=== PATIENT | male | born 1970 | race Caucasian/White ===

== ENCOUNTER 2018-05-22 11:23 | Inpatient (IN) | payer OTHER, MEDICARE ==
[~2018-05-22] VITALS: Ht 170.2 cm; Wt 70.1 kg
[2018-05-22] VITALS (9 sets, daily range): BP systolic 120–145; BP diastolic 78–98
--- NOTE | 2018-05-22 11:54 | ED GENERAL ADULT ---
History of Present Illness General Chief Complaint: ETOH/Drug Related Complaint Stated Complaint: SENT FOR HIGHWATCH CLEARENCE Source: patient Exam Limitations: no limitations Vital Signs & Intake/Output Vital Signs & Intake/Output Vital Signs Date Time Temp Pulse Resp B/P B/P Pulse O2 O2 Flow FiO2 Mean Ox Delivery Rate 05/23 0436 50 18 132/90 97 Room Air 05/23 0407 98.5 77 130/84 95 05/22 2359 98.3 64 20 142/98 97 Room Air 05/22 2205 98.3 80 19 120/84 95 05/22 1948 Room Air 05/22 1937 98.6 89 16 140/78 97 05/22 1850 98.6 90 20 144/90 05/22 1759 98.6 90 20 144/99 96 Room Air 05/22 1700 98.6 89 20 140/90 05/22 1502 98.1 96 17 145/96 05/22 1502 98.2 96 18 145/96 97 05/22 1401 98.1 88 18 144/89 97 05/22 1400 98.1 88 18 144/89 05/22 1243 97.1 96 16 139/88 05/22 1242 97.0 96 16 139/88 97 Room Air ED Intake and Output 05/23 0000 05/22 1200 Intake Total 120 Output Total 450 Balance -330 Intake, Oral 120 Output, Urine 450 Patient 152 lb 150 lb Weight Weight Bed scale Reported by Patient Measurement Method Allergies Coded Allergies: No Known Allergies (05/22/18) Reconcile Medications No Known Home Medications Triage Note: PT SENT IN FOR HIGHWATCH CLEARENCE.. PT LAST DRINK YESTERDAY. PT DRINKS 2 LITERS A DAY VODKA FOR LONG HE CAN REMEMBER. PT HAS HX OF SEIZURES ETOH RELATED.. PT HAS HX OF DEPRESSION. PT STATES THAT HE IS REALLY TIRED AND WANTS TO SLEEP. Triage Nurses Notes Reviewed? yes Onset: Gradual Duration: day(s):, constant, continues in ED, getting worse HPI: Patient presents for evaluation of acute alcohol withdrawal. Patient states he drinks about 2 L of alcohol daily. He has been drinking for many years. He went through detox about 2 years ago but has begun drinking again. His last alcoholic beverage was yesterday. Patient complains of tremors and nausea. He also refers past history of alcohol total seizures. Past History Travel History Traveled to [place] past 21 day No Medical History Any Pertinent Medical History? see below for history Neurological: seizure Psychiatric: bipolar disease, depression Surgical History Surgical History: non-contributory Psychosocial History What is your primary language Pashto Tobacco Use: Current Daily Use Daily Tobacco Use Amount/Type: => 5 Cigarettes daily ETOH Use: heavy use Family History Hx Contributory? No Review of Systems Review of Systems Constitutional: Reports: no symptoms. EENTM: Reports: no symptoms. Respiratory: Reports: no symptoms. Cardiovascular: Reports: no symptoms. GI: Reports: see HPI. Genitourinary: Reports: no symptoms. Musculoskeletal: Reports: no symptoms. Skin: Reports: no symptoms. Neurological/Psychological: Reports: tremors. Hematologic/Endocrine: Reports: no symptoms. Immunologic/Allergic: Reports: no symptoms. All Other Systems: Reviewed and Negative Physical Exam Physical Exam General Appearance: SEE BELOW Comments: General: Alert, calm, cooperative Head: Normocephalic, atraumatic Eyes: Normal inspection, no nystagmus, EOMI Ears: Normal inspection Nose: Normal inspection Throat: Moist mucosa Neck: Supple, no goiter Heart: Regular rate and rhythm, no murmurs rubs or gallops Lungs: Clear to auscultation bilaterally with good air entry Abdomen: Soft nontender nondistended, normal bowel sounds Chest: Nontender Extremities: Normal range of motion grossly, mild tremors present, no cyanosis clubbing or edema of the upper extremities Neurologic: cranial nerves II through XII grossly intact, speech clear, gait normal Psychiatric: No apparent delusions or hallucinations, no pressured speech or thought blocking Core Measures ACS in differential dx? No CVA/TIA Diagnosis: No Sepsis Present: No Sepsis Focused Exam Completed? No Progress Differential Diagnoses I considered the following diagnoses in my evaluation of the patient: Alcohol withdrawal, electrolyte abnormality, anemia, dehydration, alcoholic ketoacidosis Plan of Care: Orders Procedure Date/time Status Heart Healthy Diet 05/23 B Active ECHOCARDIOGRAM 05/23 855 Active Change service to 05/23 735 Active TROPONIN LEVEL 05/23 600 Complete PARTIAL THROMBOPLASTIN TIME 05/23 600 Complete PROTHROMBIN TIME 05/23 600 Complete MAGNESIUM 05/23 600 Complete HEPATIC FUNCTION PANEL 05/23 600 Complete CBC WITHOUT DIFFERENTIAL 05/23 600 Complete BASIC ELECTROLYTES PLUS BUN&CR 05/23 600 Complete EKG 05/23 600 Active Heart Healthy Diet 05/22 D Complete Weight 05/22 1943 Active Vital Signs 05/22 194 Active Teach/Educate 05/22 194 Active Pain Treatment and Response 05/22 1943 Active Nutritional Intake, Monitor 05/22 1943 Active Isolation 05/22 1943 Active Intake & Output 05/22 194 Active Patient Care Conference 05/22 1943 Active Activity/Ambulation 05/22 194 Active Vital Signs 05/22 193 Active HEPATITIS PANEL 05/22 1810 Complete TROPONIN LEVEL 05/22 1800 Complete EKG 05/22 1800 Active Pathway - chart 05/22 1759 Active House Staff 05/22 1759 Active Patient Data 05/22 1759 Active Code Status 05/22 1759 Active Admit to inpatient 05/22 1651 Active Misc Message 05/22 1642 Active ED Holding Orders 05/22 1642 Active Admit to inpatient 05/22 1642 Active Code Status 05/22 1642 Complete Patient Data 05/22 1600 Active MAGNESIUM 05/22 1549 Complete BASIC METABOLIC PANEL 05/22 1549 Complete Intake & Output 05/22 1203 Active MAGNESIUM 05/22 1155 Complete Lab Add-on Test 05/22 UNK Active VTE Mechanical Prophylaxis 05/22 UNK Active Telemetry/Sleeve Ironer 05/22 UNK Active CIWA 05/22 UNK Complete SOCIAL WORK CONSULT 05/22 UNK Active Current Medications Sig/Kian Start time Last Medication Dose Stop Time Status Admin Lorazepam 2 MG Q8 05/23 1400 AC (Ativan) Magnesium Chloride 64 MG ONCE ONE 05/23 1130 CAN (Slow-Mag) 05/23 1131 Magnesium Chloride 64 MG BID 05/23 1054 AC (Slow-Mag) Folic Acid 1 MG DAILY 05/23 09 AC 05/23 (Folic Acid) 08 Nicotine 21 MG DAILY 05/23 09 AC (Nicoderm) Thiamine HCl 100 MG DAILY 05/23 0900 AC 05/23 (Vitamin B1) 0813 Heparin Sodium 5,000 UNIT Q8 05/22 2200 AC 05/23 (Porcine) 0607 Dicyclomine HCl 20 MG Q6P PRN 05/22 194 AC (Bentyl) Ondansetron HCl 4 MG Q6P PRN 05/22 1945 AC (Zofran) Acetaminophen 650 MG Q6P PRN 05/22 1800 AC (Tylenol) Oxycodone HCl 10 MG Q6P PRN 05/22 1800 AC (Roxicodone) Oxycodone/ 1 TAB Q6P PRN 05/22 1800 AC Acetaminophen (Percocet) Lorazepam 2 MG Q2P PRN 05/22 1200 AC (Ativan) Lorazepam 1 MG Q2P PRN 05/22 1200 AC (Ativan) Laboratory Tests 05/23/18 0653: Anion Gap 13, Estimated GFR > 60, BUN/Creatinine Ratio 16.3, Magnesium 1.4 L, Total Bilirubin 2.0 H, Direct Bilirubin 0.4, AST 55, ALT 56, Alkaline Phosphatase 57, Troponin I < 0.01, Total Protein 6.7, Albumin 3.8, PT 10.9, INR 1.00, APTT 32, CBC w Diff NO MAN DIFF REQ, RBC 4.10 L, MCV 97.1 H, MCH 32.5 H , MCHC 33.5, RDW 13.7, MPV 9.6, Gran % 49.6, Lymphocytes % 39.7, Monocytes % 9.2 , Eosinophils % 0.9, Basophils % 0.6, Absolute Granulocytes 1.4, Absolute Lymphocytes 1.1 L, Absolute Monocytes 0.3, Absolute Eosinophils 0, Absolute Basophils 0 05/23/18 0600: Troponin I Cancelled 05/22/18 1810: Troponin I < 0.01, Hepatitis A IgM Ab NONREACTIVE, Hep Bs Antigen NONREACTIVE, Hep B Core IgM Ab Conf NONREACTIVE, Hepatitis C Antibody NONREACTIVE 05/22/18 1655: Anion Gap 14, Estimated GFR > 60, BUN/Creatinine Ratio 18.8, Glucose 88, Calcium 8.8, Magnesium 1.3 L 05/22/18 1640: Urine Opiates Screen < 100, Methadone Screen < 40, Barbiturate Screen < 60, Ur Phencyclidine Scrn < 6.00, Amphetamines Screen < 100, U Benzodiazepines Scrn < 85, Urine Cocaine Screen < 50, Urine Cannabis Screen < 5.00 Initial ED EKG: sinus tachycardia Departure Departure Disposition: STILL A PATIENT Condition: Stable Clinical Impression Primary Impression: Alcohol withdrawal Qualifiers: Complication of substance-induced condition: uncomplicated Qualified Code: F10.230 - Alcohol dependence with withdrawal, uncomplicated Departure Forms: Customer Survey General Discharge Information Prescriptions: Current Visit Scripts No Known Home Medications Admission Note Spoke With: Darlene Rai MD Documentation of Exam: Documentation of any treatments & extenuating circumstances including Concerns Regarding Discharge (functional status, medication knowledge or non-compliance, living conditions, etc.) that warrant an admission rather than observation: Continued alcohol consumption places the patient at high risk of pancreatitis, pancreatic failure, liver failure and cirrhosis. In order to avoid this the patient will need to cease drinking alcohol. Patient's alcohol use places pt at high risk of seizures and delirium tremens during cessation. Patient will be at high risk of withdrawal seizures and delirium tremens (both of which can be fatal) for up to 5 days after stopping alcohol. pt will require IV Ativan to prevent these complications. pt is therefore a very poor candidate for outpatient treatment given the above concerns and treatment needs. It addition the patient is also experiencing a severe hypomagnesemia placing him at risk of neuromuscular hyperexcitability and cardiovascular complications including EKG changes. He now requires magnesium supplementation and recheck of his serum magnesium levels for improvement. Pt will require a multiple day hospitalization. Critical Care Note Critical Care Note Critical Care Time: 30-74 min
[2018-05-22 12:08] LABS: ABSOLUTE BASOPHIL COUNT 0 /CUMM (0.0-0.2); ABSOLUTE EOSINOPHIL COUNT 0 /CUMM (0.0-0.7); ABSOLUTE GRANULOCYTE CT 3.9 /CUMM (1.4-6.5); ABSOLUTE LYMPH COUNT 0.3 /CUMM (1.2-3.4); ABSOLUTE MONOCYTE COUNT 0.3 /CUMM (0.10-0.60); BASOPHIL % 0.3 % (0.0-2.0); EOSINOPHIL % 0 % (0-5); MEAN CORPUSCULAR HGB 33.5 PG (27.0-31.0); MEAN CORPUSCULAR HGB CONC 34.7 G/DL (33.0-37.0); MEAN CORPUSCULAR VOLUME 96.5 FL (80.0-94.0); MEAN PLATELET VOLUME 8.8 FL (7.4-10.4); PLATELET COUNT 140 /CUMM (130-400); RBC DISTRIBUTION WIDTH 14.1 % (11.5-14.5); RED BLOOD CELL CT 4.67 /CUMM (4.70-6.10); WHITE BLOOD CELL COUNT 4.5 /CUMM (4.8-10.8)
[2018-05-22 12:41] LABS: GRANULOCYTE % 86.5 % (42.2-75.2)
--- NOTE | 2018-05-22 16:08 | History & Physical ---
General Information and HPI Allergies/Medications Allergies: Coded Allergies: No Known Allergies (05/22/18) Home Med list No Known Home Medications Past History Travel History Traveled to [place] past 21 day No Medical History Neurological: seizure Psychiatric: bipolar disease, depression Past Family/Social History Psychosocial History ETOH Use: heavy use Core Measures/Misc (07/09) Cerebrovascular Accident CVA/TIA Diagnosis: No Sepsis (View protocol) If YES complete Sepsis Event Note If YES complete Sepsis Event Note
--- NOTE | 2018-05-22 16:55 | History & Physical ---
Christopher Torrez 05/22/18 9734: General Information and HPI MD Statement: I have seen and personally examined JOI JI and documented this H&P. The patient is a 48 year old M who presented with a patient stated chief complaint of EtOH withdrawal. Source of Information: patient Exam Limitations: no limitations History of Present Illness: Mr. Ji is a 48 year old male with a history of EtOH abuse, depression, GERD and KATHI who presented to the ED for alcohol detox. He states that his last drink was yesterday, and that for years he has been drinking two liters of vodka daily. Last night around 10pm he began experiencing severe nausea, abdominal pain and vomiting, stating that he had vomited "dozens" of times throughout the night, without blood in his vomit. He additionally complains of a headache and tremors that were similar in onset, as well as occasionally "seeing spots". He denies auitory and tactile disturbances, or seizure activity. The patient additionally complains of chest pain that he attributes to GERD that he says has been happening daily for over a week, and insomnia that has been bothering him since he was a teenager. The patient resides in [place], [place], but came to [place] on the advice of his mother. He has previously withdrawn from alcohol 4-5 times, and has been admitted to [facility] for similar complaints as recently as 6 months ago. The patient has never been intubated, but has had seizures related to alcohol withdrawal at least 3 times, most recently about two years ago. The patient was most recently sober for an extended amount of time in 2000, when he spent 6 months in [facility] in [place] before relapsing after getting . He is a current every day smoker, reporting 1/2 pack per day, but he denies illicit drug use. Allergies/Medications Allergies: Coded Allergies: No Known Allergies (05/22/18) Home Med list No Known Home Medications Compliance With Home Meds: UNKNOWN Past History Travel History Traveled to [place] past 21 day No Medical History Neurological: seizure Cardiovascular: Denies Psychiatric: bipolar disease, depression Surgical History Surgical History: none Past Family/Social History Psychosocial History Where do you live? Home Who Do You Live With? self Primary Language: Kenyan Smoking Status: Current Everyday Smoker ETOH Use: heavy use Illicit Drug Use: denies illicit drug use Sexual History Sexually Active Yes Review of Systems Review of Systems Constitutional: Reports: diaphoresis, malaise. Denies: chills, fever, weakness. EENTM: Reports: visual changes. Cardiovascular: Reports: chest pain, palpitations. Respiratory: Denies: cough, hemoptysis, short of breath, sputum production. GI: Reports: abdominal pain, nausea, vomiting. Denies: diarrhea, bloody stool. Neurological/Psychological: Reports: anxiety, headache, tremors. Exam & Diagnostic Data Last 24 Hrs of Vital Signs/I&O Vital Signs Date Time Temp Pulse Resp B/P B/P Pulse O2 O2 Flow FiO2 Mean Ox Delivery Rate 05/22 1759 98.6 90 20 144/99 96 Room Air 05/22 1502 98.1 96 17 145/96 05/22 1502 98.2 96 18 145/96 97 05/22 1401 98.1 88 18 144/89 97 05/22 1400 98.1 88 18 144/89 05/22 1243 97.1 96 16 139/88 05/22 1242 97.0 96 16 139/88 97 Room Air 05/22 1158 97.7 98 22 158/98 98 Room Air 05/22 1137 96.5 95 22 139/95 05/22 1136 96.5 95 22 139/95 95 Intake & Output 05/22 1600 05/22 0800 05/22 0000 Intake Total 0 Output Total Balance 0 Intake, Oral 0 Patient 68.039 kg Weight Weight Reported by Patient Measurement Method Physical Exam General Appearance Alert, Oriented X3, Cooperative, Mild Distress, Appears older than stated age HEENT Atraumatic, PERRLA, EOMI Neck Supple, No JVD Cardiovascular Regular Rate, Normal S1, Normal S2, No Murmurs Lungs Clear to Auscultation, Normal Air Movement Abdomen Normal Bowel Sounds, Soft, Tender to deep palpation Neurological Normal Speech, Strength at 5/5 X4 Ext, Sensation Intact, Mild resting tremor Extremities No Clubbing, No Cyanosis, No Edema Last 24 Hrs of Labs/Robin: Laboratory Tests 05/22/18 1810: Troponin I < 0.01, Hepatitis A IgM Ab Pending, Hep Bs Antigen Pending, Hep B Core IgM Ab Conf Pending, Hepatitis C Antibody Pending 05/22/18 1655: Anion Gap 14, Estimated GFR > 60, BUN/Creatinine Ratio 18.8, Glucose 88, Calcium 8.8, Magnesium 1.3 L 05/22/18 1640: Urine Opiates Screen < 100, Methadone Screen < 40, Barbiturate Screen < 60, Ur Phencyclidine Scrn < 6.00, Amphetamines Screen < 100, U Benzodiazepines Scrn < 85, Urine Cocaine Screen < 50, Urine Cannabis Screen < 5.00 05/22/18 1155: Anion Gap 29 H, Estimated GFR > 60, BUN/Creatinine Ratio 15.6, Glucose 124 H, Calcium 9.9, Magnesium 0.6 *L, Total Bilirubin 2.5 H, AST 70 H, ALT 75 H, Alkaline Phosphatase 65, Troponin I < 0.01, Total Protein 8.9 H, Albumin 5.4 H , Globulin 3.5, Albumin/Globulin Ratio 1.5, CBC w Diff NO MAN DIFF REQ, RBC 4.67 L, MCV 96.5 H, MCH 33.5 H, MCHC 34.7, RDW 14.1, MPV 8.8, Gran % 86.5 H, Lymphocytes % 5.7 L, Monocytes % 7.5, Eosinophils % 0, Basophils % 0.3, Absolute Granulocytes 3.9, Absolute Lymphocytes 0.3 L, Absolute Monocytes 0.3, Absolute Eosinophils 0, Absolute Basophils 0, Serum Alcohol < 10.0 Assessment/Plan Assessment: 48 year old male with history of heavy alcohol use and depression, presenting for signs and symptoms of severe alcohol withdrawal, as well as chest pain and EKG changes. Patient's initial CIWA on presentation was 16, AST was 70 and ALT 75. Magnesium of 0.6. Initial EKG showed T wave inversions in II, III and avF, as well as V3, V4 and V5. Problems: 1. EtOH withdrawal 2. Chest pain with acute EKG changes 3. Elevated liver enzymes 4. Hypomagnesemia Plan: * Admit to telemetry * Lorazepam per CIWA protocol * Thiamine and Folic acid PO daily * Follow-up hepatitis panel * Abdominal ultrasound * Echocardiogram * Serial troponins and EKG's Full code Heparin Sub-q PPX Heart healthy diet CBC, BEP, PT/INR & repeat hepatic panel for tomorrow As Ranked By This Provider Problem List: 1. Alcohol withdrawal Qualifiers Complication of substance-induced condition: uncomplicated Qualified Code: F10.230 - Alcohol dependence with withdrawal, uncomplicated 2. Depression 3. KATHI (obstructive sleep apnea) Core Measures/Misc (07/09) Acute Coronary Syndrome ACS Diagnosis: No Congestive Heart Failure Congestive Heart Failure Diagnosis No Cerebrovascular Accident CVA/TIA Diagnosis: No VTE (View Protocol) VTE Risk Factors Age>40 No Mechanical VTE Prophylaxis d/t N/A MechProphylax Ordered No VTE Pharm Prophylaxis d/t NA PharmProphylax ordered Sepsis (View protocol) Sepsis Present: No If YES complete Sepsis Event Note If YES complete Sepsis Event Note Marisa Blue MD 05/22/18 1700: Core Measures/Misc (07/09) Sepsis (View protocol) If YES complete Sepsis Event Note If YES complete Sepsis Event Note Resident Review Statement Resident Statement: agreed with buyer intern Other Findings: 48-year-old gentleman with past medical history of bipolar and depression, alcoholic withdrawal seizures came to [facility] requesting EtOH detoxification. Patient lives in [facility] he brought himself to [facility] and was told by his mom that EtOH treatment was best at [facility]. Patient also mentioned that he would like to go to [facility] for inpatient detox. Apparently patient was not usual state of health until last night, at around 10 PM patient developed nausea, vomiting, chest discomfort and abdominal pain following vomiting. Patient had multiple episodes of vomiting with no blood. He also felt weak, heartburn decreased sleep and decreased appetite. He also reports seeing black spots on and off. He denied chest pain, palpitations, weakness, fall, loss of consciousness, headache, dysuria, constipation, diarrhea,. He was not eating much for the past few weeks. Patient takes vodka 2 L every day and he quit 2 days ago. Along with vodka he was smoking half a pack of cigarettes a day. Patient has been drinking since age of 13 years which got worsened after his divorce in 2000. He was briefly sober for 6 months in 2000. He claims he had 3 episodes of alcohol withdrawal seizures and last one was 2 years ago. He was never been intubated in the past. He was admitted for EtOH detox at [facility] 6 months ago. Patient lives alone and has never seen any physician in 3 years. Past surgical history-none Allergies-none Social history-everyday smoker and alcoholic. Denies illicit drug use. Family history-was adopted and lives alone. His mom lives in [place]. Admission vitals Temperature 98.1, pulse rate 96, respiratory rate 17, blood pressure 143/96, saturating 97 on room air Admission labs WBC 4.5, hemoglobin 15.6, platelet count 140, sodium 139 potassium 3.8, carbon dioxide 17, anion gap 29, BUN 14, creatinine 0.9, calcium 9.9, magnesium 0.6, total bilirubin 2.5, AST 70, ALT 75, troponin 0 0.01 urine toxicology-serum alcohol less than 10 ED treatment Lorazepam 2 mg IV once, lorazepam 2 mg IV once, pantoprazole 40 mg IV once, banana bag once, magnesium sulfate 1 g IV once EKG- On examination-patient conscious, oriented 3. No obvious external injuries. No skin lesions. Cardiovascular [id number] no murmur Respiratory system-normal vesicular breath sounds Abdomen-soft, bowel sounds heard. FACILITY OPERATIONS MANAGER-mild tremulousness noted No cerebellar signs Cranial nerves III to XII-intact Assessment and plan 1. Alcohol withdrawal * Admitted to telemetry for EKG changes. CIWA protocol * Reg protocol * Ativan 2 mg every 6 daily and taper according to CIWA * Ativan 1 mg IV as needed according to CIWA * Dicyclomine for abdominal cramps * Zofran IV every 6 as needed for nausea * Banana bag * Thiamine and folic acid from tomorrow * Encourage p.o. intake * Patient had elevated liver functions, can be secondary due to alcoholic steatohepatitis. We will do repeat liver function study tomorrow along with coagulation study. We will order hepatitis panel. * Patient had low magnesium of 0.6 upon admission we will give IV magnesium and repeat the levels and follow. * Patient had anionic gap metabolic acidosis initially and the gap closed. 2. New EKG changeS- * patient EKG shows T-wave inversion in lead II III, aVF and V3 V4 V5 V6. We do not have previous EKG to compare. Patient did not have chest pain but complained of chest discomfort. His initial set of troponin negative. * We will place a cardiology consult and if needed echocardiogram as per cardiology. Diet-heart healthy diet DVT prophylaxis-subcu heparin Cecelia PEÑA,Darlene 05/22/18 1746: Core Measures/Misc (07/09) Sepsis (View protocol) If YES complete Sepsis Event Note If YES complete Sepsis Event Note Attending MD Review Statement Attending Statement Attending MD Statement: examined this patient, discuss w/resident/PA/BAD CLOTH CHECKER, agreed w/resident/PA/BAD CLOTH CHECKER, reviewed EMR data (avail), discussed with nursing, reviewed images Attending Assessment/Plan: 48-year-old male past medical history of alcohol abuse, alcohol withdrawal related seizures, active tobacco use and depression is here for acute alcohol detox. In the emergency room he complained of some nonspecific chest pain and was noted to have some EKG changes with T-wave inversions prompting the admission to telemetry. He has a significant anion gap acidosis with elevated liver enzymes and severe hypomagnesemia. At this point will bring him into telemetry, repeat his labs stat he's gotten IV hydration and IV mag in the ER. We'll trend his troponins and EKG. We'll put him on Ativan per CIWA and Ativan [id number] with thiamine folate and multivitamins. Get a social work consult for alcohol rehabilitation and follow closely.
--- NOTE | 2018-05-22 17:48 | Admission Certification ---
Admission Certification Certification Statement - As attending physician, I certify that at the time of - admission, based on clinical presentation, severity of - symptoms, need for further diagnostic testing and - therapeutic interventions, and risk of adverse outcomes - without in-hospital treatment, in my clinical assessment, - this patient requires an acute hospital stay for a minimum - of two nights or longer. I have also considered psychsocial - factors such as support system, advanced age, financial - issues, cognitive issues, and failed out-patient treatments, - past re-admission history, safety of patient, and lack of - compliance as applicable. Specific rationale supporting this admission is: Acute etoh withdrawal with hypomagnesemia.
[2018-05-23] VITALS (7 sets, daily range): BP systolic 122–140; BP diastolic 76–90
--- NOTE | 2018-05-23 07:07 | PN- Housestaff ---
Christopher Torrez 05/23/18 0707: Subjective Follow-up For: EtOH withdrawal Acute EKG changes Tele-Events Since Last Visit: Normal sinus rhythem overnight Subjective: Patient seen sitting comfortably at the bedside. He reports improved nausea and vomiting, improving headache and tremor as well. Denies audio/visual/tactile disturbances. Reports moderate agitation/anxiety. Denying chest pain, shortness of breath, palpitations. During rounds, patient was much more drowsy, likely secondary to ativan. Review of Systems Constitutional: Denies: chills, diaphoresis, fever. Objective Last 24 Hrs of Vital Signs/I&O Vital Signs Date Time Temp Pulse Resp B/P B/P Pulse O2 O2 Flow FiO2 Mean Ox Delivery Rate 05/23 0436 50 18 132/90 97 Room Air 05/23 0407 98.5 77 130/84 95 05/22 2359 98.3 64 20 142/98 97 Room Air 05/22 2205 98.3 80 19 120/84 95 05/22 1948 Room Air 05/22 1937 98.6 89 16 140/78 97 05/22 1850 98.6 90 20 144/90 05/22 1759 98.6 90 20 144/99 96 Room Air 05/22 1700 98.6 89 20 140/90 05/22 1502 98.1 96 17 145/96 05/22 1502 98.2 96 18 145/96 97 05/22 1401 98.1 88 18 144/89 97 05/22 1400 98.1 88 18 144/89 05/22 1243 97.1 96 16 139/88 05/22 1242 97.0 96 16 139/88 97 Room Air 05/22 1158 97.7 98 22 158/98 98 Room Air 05/22 1137 96.5 95 22 139/95 05/22 1136 96.5 95 22 139/95 95 Intake & Output 05/23 0800 08 0000 05/22 1600 Intake Total 120 0 Output Total 450 Balance -330 0 Intake, Oral 120 0 Output, Urine 450 Patient 69.003 kg 68.039 kg Weight Weight Bed scale Reported by Patient Measurement Method Physical Exam General Appearance: Alert, Oriented X3, Cooperative, No Acute Distress HEENT: Atraumatic, PERRLA Cardiovascular: Regular Rate, Normal S1, Normal S2, No Murmurs Lungs: Clear to Auscultation Abdomen: Normal Bowel Sounds, Soft, No Tenderness Current Medications: Current Medications Sig/Kian Start time Last Medication Dose Route Stop Time Status Admin Acetaminophen 650 MG Q6P PRN 05/22 1800 AC PO Cyanocobalamin/ 1 BAG ONCE ONE 05/22 1215 DC 05/22 Thiamine/Pyridoxine IV 05/22 2014 1400 Sodium Chloride 1,000 ML Dicyclomine HCl 20 MG Q6P PRN 05/22 1945 AC PO Folic Acid 1 MG DAILY 05/23 09 AC PO Heparin Sodium 5,000 UNIT Q8 05/22 2200 AC 05/23 (Porcine) SC 0607 Lorazepam 0 .STK-MED ONE 05/22 1834 DC PO Lorazepam 2 MG Q6 05/22 1803 AC 05/23 PO 0606 Lorazepam 2 MG ONE ONE 05/22 1200 DC 05/22 IV 05/22 1201 1207 Lorazepam 2 MG ONCE ONE 05/22 1200 DC 05/22 PO 05/22 1201 1207 Lorazepam 2 MG Q2P PRN 05/22 1200 AC IV Lorazepam 1 MG Q2P PRN 05/22 1200 AC IV Lorazepam 0 .STK-MED ONE 05/22 1155 DC PO Lorazepam 0 .STK-MED ONE 05/22 1155 DC .ROUTE Magnesium Sulfate 1 GM ONCE ONE 05/22 2015 DC 05/22 Dextrose/Water 100 ML IV 05/23 0014 2143 Magnesium Sulfate 1 GM ONCE ONE 05/22 1300 DC 05/22 Dextrose/Water 100 ML IV 05/22 1659 1259 Ondansetron HCl 4 MG Q6P PRN 05/22 1945 AC IV Ondansetron HCl 0 .STK-MED ONE 05/22 1223 DC .ROUTE Ondansetron HCl 4 MG ONCE ONE 05/22 1215 DC 05/22 IV 05/22 1216 1227 Oxycodone HCl 10 MG Q6P PRN 05/22 1800 AC PO Oxycodone/ 1 TAB Q6P PRN 05/22 1800 AC Acetaminophen PO Pantoprazole Sodium 0 .STK-MED ONE 05/22 1155 DC IV Pantoprazole Sodium 40 MG ONCE ONE 05/22 1145 DC 05/22 IV 05/22 1146 1207 Thiamine HCl 100 MG DAILY 05/23 0900 AC PO Last 24 Hrs of Lab/Robin Results Last 24 Hrs of Labs/Mics: Laboratory Tests 05/23/18 0653: Sodium Pending, Potassium Pending, Chloride Pending, Carbon Dioxide Pending, Anion Gap Pending, BUN Pending, Creatinine Pending, BUN/Creatinine Ratio Pending , Magnesium Pending, Total Bilirubin Pending, Direct Bilirubin Pending, AST Pending, ALT Pending, Alkaline Phosphatase Pending, Troponin I Pending, Total Protein Pending, Albumin Pending, PT Pending, INR Pending, APTT Pending, CBC w Diff Pending, WBC Pending, RBC Pending, Hgb Pending, Hct Pending, MCV Pending, MCH Pending, MCHC Pending, RDW Pending, Plt Count Pending, MPV Pending 05/23/18 0600: Troponin I Cancelled 05/22/18 1810: Troponin I < 0.01, Hepatitis A IgM Ab Pending, Hep Bs Antigen Pending, Hep B Core IgM Ab Conf Pending, Hepatitis C Antibody Pending 05/22/18 1655: Anion Gap 14, Estimated GFR > 60, BUN/Creatinine Ratio 18.8, Glucose 88, Calcium 8.8, Magnesium 1.3 L 05/22/18 1640: Urine Opiates Screen < 100, Methadone Screen < 40, Barbiturate Screen < 60, Ur Phencyclidine Scrn < 6.00, Amphetamines Screen < 100, U Benzodiazepines Scrn < 85, Urine Cocaine Screen < 50, Urine Cannabis Screen < 5.00 05/22/18 1155: Anion Gap 29 H, Estimated GFR > 60, BUN/Creatinine Ratio 15.6, Glucose 124 H, Calcium 9.9, Magnesium 0.6 *L, Total Bilirubin 2.5 H, AST 70 H, ALT 75 H, Alkaline Phosphatase 65, Troponin I < 0.01, Total Protein 8.9 H, Albumin 5.4 H , Globulin 3.5, Albumin/Globulin Ratio 1.5, CBC w Diff NO MAN DIFF REQ, RBC 4.67 L, MCV 96.5 H, MCH 33.5 H, MCHC 34.7, RDW 14.1, MPV 8.8, Gran % 86.5 H, Lymphocytes % 5.7 L, Monocytes % 7.5, Eosinophils % 0, Basophils % 0.3, Absolute Granulocytes 3.9, Absolute Lymphocytes 0.3 L, Absolute Monocytes 0.3, Absolute Eosinophils 0, Absolute Basophils 0, Serum Alcohol < 10.0 Assessment/Plan Assessment: 48 year old male with history of heavy alcohol use and depression, presenting for signs and symptoms of severe alcohol withdrawal, as well as chest pain and EKG changes. Patient's initial CIWA on presentation was 16, AST was 70 and ALT 75. Magnesium of 0.6. Initial EKG showed T wave inversions in II, III and avF, as well as V3, V4 and V5. This morning, magnesium was 1.4, potassium of 3.4. CIWA this morning was 3-4. Serial troponins negative. Problems: 1. EtOH withdrawal 2. Chest pain with acute EKG changes 3. Elevated liver enzymes 4. Hypomagnesemia Plan: * Lorazepam per CIWA protocol, to taper dosage * Thiamine and Folic acid PO daily * Follow-up hepatitis panel * Consider abdominal ultrasound * Echocardiogram * Replete potassium and magnesium as necessary * food and nutrition services supervisor consulted for rehab placement * B12 and folate levels * CBC & BEP for tomorrow, K+ and Mg++, as well as evaluating pancytopenia/ possible cirrhosis * Nicotine patch as patient is current 1/2 PPD smoker Full code Heparin Sub-q PPX Heart healthy diet CBC, BEP, PT/INR & repeat hepatic panel for tomorrow Problem List: 1. Depression 2. KATHI (obstructive sleep apnea) 3. Alcohol withdrawal Pain Ratin Pain Location: Headache Pain Goal: Pain 4 or less Pain Plan: Per pathway Tomorrow's Labs & Rationales: BEP & Mg Soco PEÑA,Litzy 05/23/18 1045: Attending MD Review Statement Attending Statement Attending MD Statement: examined this patient, discuss w/resident/PA/GERIATRIC SOCIAL WORK PROFESSOR, agreed w/resident/PA/GERIATRIC SOCIAL WORK PROFESSOR, reviewed EMR data (avail), discussed with nursing, discussed with case mgmt, amended to note Attending Assessment/Plan: Patient seen and examined. Lying in bed sleeping, easily aroused. No events overnight on telemetry monitoring. She has not required additional doses of Ativan order in the scheduled doses. His CIWA Score Is Improving. No further complaints this morning. Recommend continuing CIWA protocol. Ativan is being decreased due to his significant somnolence this morning. He has ruled out for ACS with negative cardiac enzymes. Plan: -Follow-up with cardiology service regarding need for further cardiac workup given his abnormal EKG on presentation. Echocardiogram is pending. -Continue benzodiazepine taper. Social work consultation for alcohol abuse rehabilitation. -Thrombocytopenic today. No previous labs for comparison. Likely secondary to chronic alcohol abuse. Hold subcu heparin for now. Repeat CBCs in a.m. Supplement potassium and magnesium orally. -Check folic acid and B12 level for further evaluation of his macrocytosis.
[2018-05-23 08:17] LABS: PT 10.9 SEC (9.4-12.5); PTT 32 SEC (25-37)
[2018-05-23 08:36] LABS: ABSOLUTE BASOPHIL COUNT 0 /CUMM (0.0-0.2); ABSOLUTE EOSINOPHIL COUNT 0 /CUMM (0.0-0.7); ABSOLUTE GRANULOCYTE CT 1.4 /CUMM (1.4-6.5); ABSOLUTE LYMPH COUNT 1.1 /CUMM (1.2-3.4); ABSOLUTE MONOCYTE COUNT 0.3 /CUMM (0.10-0.60); BASOPHIL % 0.6 % (0.0-2.0); EOSINOPHIL % 0.9 % (0-5); GRANULOCYTE % 49.6 % (42.2-75.2); MEAN CORPUSCULAR HGB 32.5 PG (27.0-31.0); MEAN CORPUSCULAR HGB CONC 33.5 G/DL (33.0-37.0); MEAN CORPUSCULAR VOLUME 97.1 FL (80.0-94.0); MEAN PLATELET VOLUME 9.6 FL (7.4-10.4); PLATELET COUNT 94 /CUMM (130-400); RBC DISTRIBUTION WIDTH 13.7 % (11.5-14.5); WHITE BLOOD CELL COUNT 2.9 /CUMM (4.8-10.8)
[2018-05-23 08:41] LABS: HEMATOCRIT 39.8 % (42-52)
--- NOTE | 2018-05-23 10:04 | Cons- Cardiology ---
General Information and HPI Consulting Request Date of Consult: 05/23/18 Requested By: Soco PEÑA,Litzy Reason for Consult: Chest pain with abnormal ECG Source of Information: patient, old records Exam Limitations: no limitations History of Present Illness: Mr. Ji is a 48 year old male with a history of EtOH abuse, depression, GERD and KATHI who presented to the ED for alcohol detox. He states that his last drink was yesterday, and that for years he has been drinking two liters of vodka daily. Last night around 10pm he began experiencing severe nausea, abdominal pain and vomiting, stating that he had vomited "dozens" of times throughout the night, without blood in his vomit. He additionally complains of a headache and tremors that were similar in onset, as well as occasionally "seeing spots". He denies auitory and tactile disturbances, or seizure activity. The patient additionally complains of chest pain that he attributes to GERD that he says has been happening daily for over a week, and insomnia that has been bothering him since he was a teenager. By history, the patient's symptoms seem to be non cardiac in nature. He does have non specific STT changes on his ECG which may be related to LVH, metabolic abnormalities, etc, however, ischemia cannot be excluded without further evaluation Allergies/Medications Allergies: Coded Allergies: No Known Allergies (05/22/18) Home Med List: No Known Home Medications Current Medications: Current Medications Sig/Kian Start time Last Medication Dose Route Stop Time Status Admin Acetaminophen 650 MG Q6P PRN 05/22 1800 AC PO Cyanocobalamin/ 1 BAG ONCE ONE 05/22 1215 DC 05/22 Thiamine/Pyridoxine IV 05/22 2014 1400 Sodium Chloride 1,000 ML Dicyclomine HCl 20 MG Q6P PRN 05/22 1945 AC PO Folic Acid 1 MG DAILY 05/23 0900 AC 05/23 PO 0813 Heparin Sodium 5,000 UNIT Q8 05/22 2200 AC 05/23 (Porcine) SC 0607 Lorazepam 2 MG Q8 05/23 1400 AC PO Lorazepam 0 .STK-MED ONE 05/22 1834 DC PO Lorazepam 2 MG Q6 05/22 1803 DC 05/23 PO 0606 Lorazepam 2 MG ONE ONE 05/22 1200 DC 05/22 IV 05/22 1201 1207 Lorazepam 2 MG ONCE ONE 05/22 1200 DC 05/22 PO 05/22 1201 1207 Lorazepam 2 MG Q2P PRN 05/22 1200 AC IV Lorazepam 1 MG Q2P PRN 05/22 1200 AC IV Lorazepam 0 .STK-MED ONE 05/22 1155 DC PO Lorazepam 0 .STK-MED ONE 05/22 1155 DC .ROUTE Magnesium Sulfate 1 GM ONCE ONE 05/22 2015 DC 05/22 Dextrose/Water 100 ML IV 05/23 0014 2143 Magnesium Sulfate 1 GM ONCE ONE 05/22 1300 DC 05/22 Dextrose/Water 100 ML IV 05/22 1659 1259 Nicotine 21 MG DAILY 05/23 09 AC TOP Ondansetron HCl 4 MG Q6P PRN 05/22 1945 AC IV Ondansetron HCl 0 .STK-MED ONE 05/22 1223 DC .ROUTE Ondansetron HCl 4 MG ONCE ONE 05/22 1215 DC 05/22 IV 05/22 1216 1227 Oxycodone HCl 10 MG Q6P PRN 05/22 1800 AC PO Oxycodone/ 1 TAB Q6P PRN 05/22 1800 AC Acetaminophen PO Pantoprazole Sodium 0 .STK-MED ONE 05/22 1155 DC IV Pantoprazole Sodium 40 MG ONCE ONE 05/22 1145 DC 05/22 IV 05/22 1146 1207 Thiamine HCl 100 MG DAILY 05/23 09 AC 05/23 PO 0813 Past History Travel History Traveled to [place] past 21 day No Medical History Blood Transfusion Hx: No Neurological: seizure, vertigo EENT: NONE Cardiovascular: Denies Respiratory: NONE Gastrointestinal: NONE Hepatic: NONE Renal: NONE Musculoskeletal: NONE Psychiatric: bipolar disease, depression Endocrine: NONE Blood Disorders: NONE Cancer(s): NONE HOSPICE CONSULTANT/Reproductive: NONE Surgical History Surgical History: 1 Psychosocial History Where Do You Live? Home Who Do You Live With? self Services at Home: None Primary Language: Bulgarian Smoking Status: Current Everyday Smoker ETOH Use: heavy use Illicit Drug Use: denies illicit drug use Exam & Diagnostic Data Vital Signs and I&O Vital Signs Date Time Temp Pulse Resp B/P B/P Pulse O2 O2 Flow FiO2 Mean Ox Delivery Rate 05/23 0436 50 18 132/90 97 Room Air 05/23 040 98.5 77 130/84 95 05/22 2359 98.3 64 20 142/98 97 Room Air 05/22 2205 98.3 80 19 120/84 95 05/22 1948 Room Air 05/22 1937 98.6 89 16 140/78 97 05/22 1850 98.6 90 20 144/90 05/22 1759 98.6 90 20 144/99 96 Room Air 05/22 1700 98.6 89 20 140/90 05/22 1502 98.1 96 17 145/96 05/22 1502 98.2 96 18 145/96 97 05/22 1401 98.1 88 18 144/89 97 05/22 1400 98.1 88 18 144/89 05/22 1243 97.1 96 16 139/88 05/22 1242 97.0 96 16 139/88 97 Room Air 05/22 1158 97.7 98 22 158/98 98 Room Air 05/22 1137 96.5 95 22 139/95 05/22 1136 96.5 95 22 139/95 95 Intake & Output 05/23 0000 05/22 0800 05/22 0000 Intake Total 120 120 0 Output Total 450 Balance 120 -330 0 Intake, Oral 120 120 0 Output, Urine 450 Patient 152 lb 150 lb Weight Weight Bed scale Reported by Patient Measurement Method Physical Exam: General Alert, Oriented X3, Cooperative, Mild Distress, Appears older than stated age HEENT Atraumatic, PERRLA, EOMI Neck Supple, No JVD, carotids normal bilaterally Cardiovascular Regular Rate, Normal S1, Normal S2, 1/6 systolic murmur Lungs Clear to Auscultation, Normal Air Movement Abdomen Normal Bowel Sounds, Soft, Tender to deep palpation Neurological Normal / non focal Extremities No Clubbing, No Cyanosis, No Edema Labs/Robin Results: Laboratory Tests 05/23 05/23 05/22 0653 0600 1810 Chemistry Sodium (137 - 145 mmol/L) 131 L Potassium (3.5 - 5.1 mmol/L) 3.4 L Chloride (98 - 107 mmol/L) 94 L Carbon Dioxide (22 - 30 mmol/L) 25 Anion Gap (5 - 16) 13 BUN (9 - 20 mg/dL) 13 Creatinine (0.7 - 1.2 mg/dL) 0.8 Estimated GFR (>60 ml/min) > 60 BUN/Creatinine Ratio (7 - 25 %) 16.3 Magnesium (1.6 - 2.3 mg/dL) 1.4 L Total Bilirubin (0.2 - 1.3 mg/dL) 2.0 H Direct Bilirubin (< 0.4 mg/dL) 0.4 AST (17 - 59 U/L) 55 ALT (21 - 72 U/L) 56 Alkaline Phosphatase (< 127 U/L) 57 Troponin I (<0.11 ng/ml) < 0.01 Cancelled < 0.01 Total Protein (6.3 - 8.2 g/dL) 6.7 Albumin (3.5 - 5.0 g/dL) 3.8 Coagulation PT (9.4 - 12.5 SEC) 10.9 INR (0.90 - 1.17) 1.00 APTT (25 - 37 SEC) 32 Hematology CBC w Diff NO MAN DIFF REQ WBC (4.8 - 10.8 /CUMM) 2.9 L RBC (4.70 - 6.10 /CUMM) 4.10 L Hgb (14.0 - 18.0 G/DL) 13.3 L Hct (42 - 52 %) 39.8 L MCV (80.0 - 94.0 FL) 97.1 H MCH (27.0 - 31.0 PG) 32.5 H MCHC (33.0 - 37.0 G/DL) 33.5 RDW (11.5 - 14.5 %) 13.7 Plt Count (130 - 400 /CUMM) 94 L MPV (7.4 - 10.4 FL) 9.6 Gran % (42.2 - 75.2 %) 49.6 Lymphocytes % (20.5 - 51.1 %) 39.7 Monocytes % (1.7 - 9.3 %) 9.2 Eosinophils % (0 - 5 %) 0.9 Basophils % (0.0 - 2.0 %) 0.6 Absolute Granulocytes (1.4 - 6.5 /CUMM) 1.4 Absolute Lymphocytes (1.2 - 3.4 /CUMM) 1.1 L Absolute Monocytes (0.10 - 0.60 /CUMM) 0.3 Absolute Eosinophils (0.0 - 0.7 /CUMM) 0 Absolute Basophils (0.0 - 0.2 /CUMM) 0 Serology Hepatitis A IgM Ab (NONREACTIVE) Pending Hep Bs Antigen (NONREACTIVE) Pending Hep B Core IgM Ab Conf (NONREACTIVE) Pending Hepatitis C Antibody (NONREACTIVE) Pending 05/22 05/22 05/22 1655 1640 1155 Chemistry Sodium (137 - 145 mmol/L) 133 L 139 Potassium (3.5 - 5.1 mmol/L) 3.7 3.8 Chloride (98 - 107 mmol/L) 90 L 93 L Carbon Dioxide (22 - 30 mmol/L) 29 17 L Anion Gap (5 - 16) 14 29 H BUN (9 - 20 mg/dL) 15 14 Creatinine (0.7 - 1.2 mg/dL) 0.8 0.9 Estimated GFR (>60 ml/min) > 60 > 60 BUN/Creatinine Ratio (7 - 25 %) 18.8 15.6 Glucose (65 - 99 mg/dL) 88 124 H Calcium (8.4 - 10.2 mg/dL) 8.8 9.9 Magnesium (1.6 - 2.3 mg/dL) 1.3 L 0.6 *L Total Bilirubin (0.2 - 1.3 mg/dL) 2.5 H AST (17 - 59 U/L) 70 H ALT (21 - 72 U/L) 75 H Alkaline Phosphatase (< 127 U/L) 65 Troponin I (<0.11 ng/ml) < 0.01 Total Protein (6.3 - 8.2 g/dL) 8.9 H Albumin (3.5 - 5.0 g/dL) 5.4 H Globulin (1.9 - 4.2 gm/dL) 3.5 Albumin/Globulin Ratio (1.1 - 2.2 %) 1.5 Hematology CBC w Diff NO MAN DIFF REQ WBC (4.8 - 10.8 /CUMM) 4.5 L RBC (4.70 - 6.10 /CUMM) 4.67 L Hgb (14.0 - 18.0 G/DL) 15.6 Hct (42 - 52 %) 45.0 MCV (80.0 - 94.0 FL) 96.5 H MCH (27.0 - 31.0 PG) 33.5 H MCHC (33.0 - 37.0 G/DL) 34.7 RDW (11.5 - 14.5 %) 14.1 Plt Count (130 - 400 /CUMM) 140 MPV (7.4 - 10.4 FL) 8.8 Gran % (42.2 - 75.2 %) 86.5 H Lymphocytes % (20.5 - 51.1 %) 5.7 L Monocytes % (1.7 - 9.3 %) 7.5 Eosinophils % (0 - 5 %) 0 Basophils % (0.0 - 2.0 %) 0.3 Absolute Granulocytes (1.4 - 6.5 /CUMM) 3.9 Absolute Lymphocytes (1.2 - 3.4 /CUMM) 0.3 L Absolute Monocytes (0.10 - 0.60 /CUMM) 0.3 Absolute Eosinophils (0.0 - 0.7 /CUMM) 0 Absolute Basophils (0.0 - 0.2 /CUMM) 0 Toxicology Urine Opiates Screen (>2000 NG/ML) < 100 Methadone Screen (>300 NG/ML) < 40 Barbiturate Screen (>200 NG/ML) < 60 Ur Phencyclidine Scrn (>25 NG/ML) < 6.00 Amphetamines Screen (>1000 NG/ML) < 100 U Benzodiazepines Scrn (>200 NG/ML) < 85 Urine Cocaine Screen (>300 NG/ML) < 50 Urine Cannabis Screen (>50 NG/ML) < 5.00 Serum Alcohol (<10 MG/DL) < 10.0 Diagnostic Data EKG Results 1. NSR with non specific inferolateral STT changes. 2. NSR with improving STT changes Assessment/Plan Assessment/Plan Assessment: 1. Chest pain syndrome with abnormal ECG 2. EtOH detox 3. Hypomagnesemia 4. Hyponatremia Recommendations: -Maintain on telemetry -Continue to correct Mg2+ and check followup levels -Echocardiogram to rule out structural heart disease and/or wall motion abnormalities. -Eventual nuclear stress test to be scheduled; probably as outpatient Consult Acknowledgment - Thank you for your consult request.
[2018-05-24 00:57] VITALS: BP 136/90
[2018-05-24 06:26] VITALS: BP 128/86
--- NOTE | 2018-05-24 07:14 | PN- Housestaff ---
See Addendum Christopher Torrez 05/24/18 0714: Subjective Follow-up For: EtOH withdrawal Acute EKG changes Tele-Events Since Last Visit: Patient in normal sinus rhythm overnight Subjective: Patient is seen lying in the bed, sleeping and difficult to arouse. He appears confused upon waking, but then is able to answer question and denies headache, nausea/vomiting, audio/tactile/visual disturbances. Upon questioning, patient is alert and oriented 3, and he is eager to smoke a cigarette. Patient is also expressing a desire to leave the hospital and go home, but he was unable to comprehend how this would affect his ability to go to rehab, which is the purpose of his hospitalization after detoxification. Patient states he just wants to go home to "clear his head" because he is not thinking clearly here, and that he has stuff to do at home. Review of Systems Constitutional: Reports: malaise. Denies: chills, fever, weakness. Objective Last 24 Hrs of Vital Signs/I&O Vital Signs Date Time Temp Pulse Resp B/P B/P Pulse O2 O2 Flow FiO2 Mean Ox Delivery Rate 05/24 0626 98.0 90 18 128/86 98 Room Air 05/24 0057 98.3 99 20 136/90 05/23 2213 98.4 87 18 122/80 98 Room Air 05/23 2200 98.2 84 18 122/80 05/23 2000 98.2 80 18 140/76 05/23 1857 98.2 80 17 140/76 05/23 1449 98.1 80 18 138/78 95 Room Air Intake & Output 05/24 0800 05/24 0000 05/23 1600 Intake Total 120 120 420 Output Total 300 Balance 120 120 120 Intake, IV 20 Intake, Oral 120 120 400 Output, Urine 300 Patient 69.4 kg Weight Weight Bed scale Measurement Method Physical Exam General Appearance: Alert, Oriented X3, Cooperative, No Acute Distress HEENT: Atraumatic, EOMI Cardiovascular: Regular Rate, Normal S1, Normal S2 Lungs: Clear to Auscultation, Normal Air Movement Abdomen: Normal Bowel Sounds, Soft Current Medications: Current Medications Sig/Kian Start time Last Medication Dose Route Stop Time Status Admin Acetaminophen 650 MG Q6P PRN 05/22 1800 AC PO Dicyclomine HCl 20 MG Q6P PRN 05/22 1945 AC PO Folic Acid 1 MG DAILY 05/23 0900 AC 05/23 PO 0813 Heparin Sodium 5,000 UNIT Q8 05/22 2200 DC 05/23 (Porcine) SC 1318 Lorazepam 2 MG Q8 05/23 1400 AC 05/24 PO 0504 Lorazepam 2 MG Q6 05/22 1803 DC 05/23 PO 0606 Lorazepam 2 MG Q2P PRN 05/22 1200 AC 05/24 IV 0234 Lorazepam 1 MG Q2P PRN 05/22 1200 AC 05/23 IV 1900 Magnesium Chloride 64 MG ONCE ONE 05/23 1130 CAN PO 05/23 1131 Magnesium Chloride 64 MG BID 05/23 1054 AC 05/23 PO 2222 Magnesium Sulfate 1 GM ONCE ONE 05/23 1900 DC 05/23 Dextrose/Water 100 ML IV 05/23 Nicotine 21 MG DAILY 05/23 09 AC 05/24 TOP 0251 Ondansetron HCl 4 MG Q6P PRN 05/22 1945 AC IV Oxycodone HCl 10 MG Q6P PRN 05/22 1800 AC PO Oxycodone/ 1 TAB Q6P PRN 05/22 1800 AC Acetaminophen PO Potassium Chloride 20 MEQ ONCE ONE 05/23 1130 DC 05/23 PO 05/23 1131 1318 Thiamine HCl 100 MG DAILY 05/23 09 AC 05/23 PO 0813 Last 24 Hrs of Lab/Robin Results Last 24 Hrs of Labs/Mics: Laboratory Tests 05/24/18 0634: CBC w Diff Pending, WBC Pending, RBC Pending, Hgb Pending, Hct Pending, MCV Pending, MCH Pending, MCHC Pending, RDW Pending, Plt Count Pending, MPV Pending 05/23/18 1504: Anion Gap 10, Estimated GFR > 60, BUN/Creatinine Ratio 14.4, Magnesium 1.4 L, Vitamin B12 843, Folate > 20.0 H Assessment/Plan Assessment: 48 year old male with history of heavy alcohol use and depression, presenting for signs and symptoms of severe alcohol withdrawal, as well as chest pain and EKG changes. Patient's initial CIWA on presentation was 16, AST was 70 and ALT 75. Magnesium of 0.6. Initial EKG showed T wave inversions in II, III and avF, as well as V3, V4 and V5. This morning, magnesium was 1.6, potassium of 3.5. CIWA this morning was 12-16. Problems: 1. EtOH withdrawal 2. Chest pain with acute EKG changes 3. Elevated liver enzymes 4. Hypomagnesemia Plan: * Psych consulted regarding capacity, recommendations appreciated * Lorazepam 2 mg p.o. every 4 hours, to taper dosage * Thiamine and Folic acid PO daily * Follow-up hepatitis panel * Consider abdominal ultrasound * Follow-up echocardiogram * Replete potassium and magnesium as necessary * family services assistant consulted for rehab placement * Continue nicotine patch Full code Heparin Sub-q PPX Heart healthy diet BEP tomorrow Problem List: 1. KATHI (obstructive sleep apnea) 2. Depression 3. Alcohol withdrawal Pain Ratin Pain Location: None Pain Goal: Pain 4 or less Pain Plan: per pathway Tomorrow's Labs & Rationales: BEP magnesium potassium Soco PEÑA,Litzy 05/24/18 1056: Attending MD Review Statement Attending Statement Attending MD Statement: examined this patient, discuss w/resident/PA/CLOTH FOLDER HAND, agreed w/resident/PA/CLOTH FOLDER HAND, reviewed EMR data (avail), discussed with nursing, discussed with case mgmt, amended to note Attending Assessment/Plan: Patient seen and examined. This morning he is agitated I wants to leave the hospital AGAINST MEDICAL ADVICE. Patient traveled a significant distance to come to [facility] for management of his alcohol abuse disorder however he reports that he is here only because his mother and advised her to hold him to come here for treatment. He is not ready to undergo any inpatient treatment for an aftercare program. He reports that he wants to go back home and have things to obtain today. I did explain to him in clear terms the ramifications of him leaving the hospital prematurely. I explained the outcomes to include seizures and possibility of from not having his alcohol withdrawal properly treated. He verbalized understanding. He insists on leaving the hospital. He is alert and oriented 3. He is able to articulate himself clearly. He has capacity and insight into his decision. He states he is not ready to pursue any inpatient or after care for his alcohol use. He did report a craving for cigarette use and states that nicotine patches have never worked for him. We will continue to encourage him to stay in the hospital to receive treatment. However if he continues to insist on leaving AGAINST MEDICAL ADVICE he has capacity to leave in the company of his mother.
[2018-05-24 08:15] LABS: ABSOLUTE BASOPHIL COUNT 0 /CUMM (0.0-0.2); ABSOLUTE EOSINOPHIL COUNT 0 /CUMM (0.0-0.7); ABSOLUTE LYMPH COUNT 1.2 /CUMM (1.2-3.4); ABSOLUTE MONOCYTE COUNT 0.2 /CUMM (0.10-0.60); BASOPHIL % 0.5 % (0.0-2.0); EOSINOPHIL % 1.1 % (0-5); GRANULOCYTE % 57.2 % (42.2-75.2); HEMATOCRIT 37.1 % (42-52); MEAN CORPUSCULAR HGB 33.5 PG (27.0-31.0); MEAN CORPUSCULAR HGB CONC 34.6 G/DL (33.0-37.0); MEAN CORPUSCULAR VOLUME 96.6 FL (80.0-94.0); MEAN PLATELET VOLUME 9.9 FL (7.4-10.4); PLATELET COUNT 76 /CUMM (130-400); RBC DISTRIBUTION WIDTH 13.8 % (11.5-14.5); RED BLOOD CELL CT 3.84 /CUMM (4.70-6.10); WHITE BLOOD CELL COUNT 3.6 /CUMM (4.8-10.8)
[2018-05-24 14:43] VITALS: BP 124/88
--- NOTE | 2018-05-24 15:28 | Cons- Psychiatry ---
Psychiatric Consult Date of Consult: 05/24/18 Reason for Consult: Assessment of capacity to leave AMA. History of Present Illness: This 48-year-old male presented to the emergency room with his mother reporting symptoms of alcohol withdrawal. Blood alcohol was negative on admission. The patient reported that he was sober for 24 hours at the time of presentation and was complaining of withdrawal symptoms. The plan is for him to go to [facility] after detox. CIWA scores have been 10-16, vital signs are normal. The patient reports that he has been drinnking between one and two litres of alcohol a day sincehe was 13. He was sober for about five years in the early 1999s following a six-month residential program at [facility] in [place]. He has also had periods of sobriey lasting several months. HE is not connnected with AA. He has a history of alcohol withdrawal-related seizures. No known h/o DTs. He denies any other substance use. The patient says that he has to go to [facility] 'or my mother will cut me off". He needs her to help with his [employer] bill. He states that he wants to go home to take care of his cat and then come back. He is unable to say what difference opne night will make when he is going away for a month. His mother will look after his cat while he is away. The patient carries a disgnosis of PTSD. He denies that this is related to his service though he is service connnected for it. He reports flashbacks, no nightmares. He is not in treatment. He is not depressed or suicidal. He is not psychotic. He denies craving for alcohol. Past Psychiatric history: No hospitalizations. No h/o suicide attempts. Not currently in treatment or on medications. Current social circumstances the patient is . She lives alone in [place]. His mother lives in [place] and helps him financially. The patient is a . 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 He was discharged honorably. He says that he is service connected for PTSD. He is not currently connected with psychiatric services. Allergies: Coded Allergies: No Known Allergies (05/22/18) Current Medications: Med Acetaminophen 650 MG PO Q6P PRN 05/22/18 1800 Dicyclomine HCl 20 MG PO Q6P PRN 05/22/181944 Folic Acid 1 MG PO DAILY 05/23/18 0900 Lorazepam 2 MG PO Q4 05/24/18 1000 Magnesium Chloride 64 MG PO BID 05/23/18 1054 Metoprolol Tartrate 12.5 MG PO BID 05/24/18 2100 Nicotine 21 MG TOP DAILY 05/23/18 0900 Ondansetron HCl 4 MG IV Q6P PRN 05/22/181944 Oxycodone HCl 10 MG PO Q6P PRN 05/22/18 1800 Oxycodone/Acetaminophen 1 TAB PO Q6P PRN 05/22/18 1800 Thiamine HCl 100 MG PO DAILY 05/23/18 0900 Past History Past Medical History Neurological: seizure, vertigo EENT: NONE Cardiovascular: Denies Respiratory: NONE Gastrointestinal: NONE Hepatic: NONE Renal: NONE Musculoskeletal: NONE Psychiatric: bipolar disease, depression Endocrine: NONE Blood Disorders: NONE Cancer(s): NONE CLINICAL LABORATORY DIRECTOR/Reproductive: NONE Past Surgical History Surgical History: non-contributory Assessment/Plan Mental Status Mental Status Exam: The patient is a large 48-year-old male with a shaved head. He was somewhat sullen and minor. Eye contact was good. Speech was monotonous, low in volume, normal in rhythm and rate. Mood was good, affect blunted. The patient is not suicidal or homicidal. Thought process was normal in tempo and stream. Form was concrete. Attention and concentration were poor. The patient appeared to have some difficulty processing information. There was no perceptual abnormality. Insight was limited and judgment impaired. Diffential Diagnosis: Alcohol withdrawal without perceptual abnormality Alcohol use disorder severe dependence PTSD by history Judgment impaired likely secondary to lorazepam Impression: The patient's motivation for sobriety is questionable. Both his detox and rehab program seemed to be at the insistence of his mother. The patient feels obliged his mother financially. He was not receptive to suggestions as to how he could reduce his dependence by getting fuel assistance etc. The patient's reason for leaving hospital is to look after his cat. This will only be for 1 night although he says he is planning to be away for a month. He is unable to explain this to rationalize it. He is having difficulty processing information. He also has a history of withdrawal related seizures. He was unable to process the information that this further increases the likelihood of withdrawal seizure if he is to stop lorazepam suddenly. At the time of assessment the patient did not have capacity to leave AGAINST MEDICAL ADVICE. However at the end of our discussion the patient agreed to stay in hospital. Psychiatry will sign off. Thank you for consulting us on this patient.
--- NOTE | 2018-05-24 15:50 | PN- Cardiology ---
Subjective Subjective: Events noted, no new cardiac issues detected. Objective Vital Signs and I&Os Vital Signs Date Time Temp Pulse Resp B/P B/P Pulse O2 O2 Flow FiO2 Mean Ox Delivery Rate 05/24 1443 97.7 81 18 124/88 98 Room Air 05/24 0626 98.0 90 18 128/86 98 Room Air 05/24 0057 98.3 99 20 136/90 05/23 2213 98.4 87 18 122/80 98 Room Air 05/23 2200 98.2 84 18 122/80 05/23 2000 98.2 80 18 140/76 05/23 1857 98.2 80 17 140/76 Intake & Output 05/24 1600 05/24 0000 05/23 1600 05/23 0805/23 0000 Intake Total 120 120 420 120 120 Output Total 300 450 Balance 120 120 120 120 -330 Intake, IV 20 Intake, Oral 120 120 400 120 120 Output, Urine 300 450 Patient 153 lb 152 lb Weight Weight Bed scale Bed scale Measurement Method Physical Exam: General Alert, Oriented X3, Cooperative, Mild Distress, Appears older than stated age HEENT Atraumatic, PERRLA, EOMI Neck Supple, No JVD, carotids normal bilaterally Cardiovascular Regular Rate, Normal S1, Normal S2, 1/6 systolic murmur Lungs Clear to Auscultation, Normal Air Movement Abdomen Normal Bowel Sounds, Soft, Tender to deep palpation Neurological Normal / non focal Extremities No Clubbing, No Cyanosis, No Edema Current Medications: Current Medications Sig/Kian Start time Last Medication Dose Route Stop Time Status Admin Acetaminophen 650 MG Q6P PRN 05/22 1800 AC PO Dicyclomine HCl 20 MG Q6P PRN 05/22 1945 AC PO Folic Acid 1 MG DAILY 05/23 0900 AC 05/23 PO 0813 Lorazepam 2 MG Q4 05/24 1000 AC 05/24 PO 1443 Lorazepam 2 MG Q8 05/23 1400 DC 05/24 PO 0504 Lorazepam 2 MG Q2P PRN 05/22 1200 DC 05/24 IV 0846 Lorazepam 1 MG Q2P PRN 05/22 1200 DC 05/23 IV 1900 Magnesium Chloride 64 MG BID 05/23 1054 AC 05/23 PO 2222 Magnesium Sulfate 1 GM ONCE ONE 05/23 190 DC 05/23 Dextrose/Water 100 ML IV 05/23 Metoprolol Tartrate 12.5 MG BID 05/24 2100 AC PO Nicotine 21 MG DAILY 05/23 900 AC 05/24 [facility] 0251 Ondansetron HCl 4 MG Q6P PRN 05/22 1945 AC IV Oxycodone HCl 10 MG Q6P PRN 05/22 1800 AC PO Oxycodone/ 1 TAB Q6P PRN 05/22 1800 AC Acetaminophen PO Potassium Chloride 40 MEQ ONCE ONE 05/24 1515 DC PO 05/24 1516 Thiamine HCl 100 MG DAILY 05/23 900 AC 05/23 PO 0813 Results Last 48 Hrs of Labs/Mics: Laboratory Tests 05/24/18 1035: Magnesium 1.6 05/24/18 0634: CBC w Diff NO MAN DIFF REQ, RBC 3.84 L, MCV 96.6 H, MCH 33.5 H, MCHC 34.6, RDW 13.8, MPV 9.9, Gran % 57.2, Lymphocytes % 34.3, Monocytes % 6.9, Eosinophils % 1.1, Basophils % 0.5, Absolute Granulocytes 2.0, Absolute Lymphocytes 1.2, Absolute Monocytes 0.2, Absolute Eosinophils 0, Absolute Basophils 0 05/23/18 1504: Anion Gap 10, Estimated GFR > 60, BUN/Creatinine Ratio 14.4, Magnesium 1.4 L, Vitamin B12 843, Folate > 20.0 H 05/23/18 0653: Anion Gap 13, Estimated GFR > 60, BUN/Creatinine Ratio 16.3, Magnesium 1.4 L, Total Bilirubin 2.0 H, Direct Bilirubin 0.4, AST 55, ALT 56, Alkaline Phosphatase 57, Troponin I < 0.01, Total Protein 6.7, Albumin 3.8, PT 10.9, INR 1.00, APTT 32, CBC w Diff NO MAN DIFF REQ, RBC 4.10 L, MCV 97.1 H, MCH 32.5 H , MCHC 33.5, RDW 13.7, MPV 9.6, Gran % 49.6, Lymphocytes % 39.7, Monocytes % 9.2 , Eosinophils % 0.9, Basophils % 0.6, Absolute Granulocytes 1.4, Absolute Lymphocytes 1.1 L, Absolute Monocytes 0.3, Absolute Eosinophils 0, Absolute Basophils 0 05/23/18 0600: Troponin I Cancelled 05/22/18 1810: Troponin I < 0.01, Hepatitis A IgM Ab NONREACTIVE, Hep Bs Antigen NONREACTIVE, Hep B Core IgM Ab Conf NONREACTIVE, Hepatitis C Antibody NONREACTIVE 05/22/18 1655: Anion Gap 14, Estimated GFR > 60, BUN/Creatinine Ratio 18.8, Glucose 88, Calcium 8.8, Magnesium 1.3 L 05/22/18 1640: Urine Opiates Screen < 100, Methadone Screen < 40, Barbiturate Screen < 60, Ur Phencyclidine Scrn < 6.00, Amphetamines Screen < 100, U Benzodiazepines Scrn < 85, Urine Cocaine Screen < 50, Urine Cannabis Screen < 5.00 Assessment/Plan Assessment/Plan Assessment: 1. Chest pain syndrome with abnormal ECG-no new changes or symptoms 2. EtOH detox 3. Hypomagnesemia-improved at 1.6 4. Hyponatremia-stable at 131 Recommendations: -As of this point, the patient has had no significant arrhythmias. I believe he can safely come off of telemetry monitoring -Continue magnesium supplementation indefinitely -Echocardiogram reviewed and shows normal left ventricular function with no wall motion abnormalities and no significant valvular heart disease. A small, hemodynamically insignificant pericardial effusion is present -Eventual nuclear stress test to be scheduled; probably as outpatient Continue telemetry? No
--- NOTE | 2018-05-24 17:58 | Event Note ---
Event Note Event Note: Patient got delirious at 5.30 pm, and said he was at home. The nurses tried to calm him down, after a couple of minutes, he said he wanted to smoke and got agitated and started walking out of the prieto. The patient was restrained and given IV Ativan 2mg at 5.51pm. CIWA score- 21 Dr Wan was informed about thre event.
[2018-05-24 22:39] VITALS: BP 116/70
[2018-05-25 06:40] VITALS: BP 124/66
[2018-05-25 08:00] VITALS: BP 126/60
--- NOTE | 2018-05-25 08:19 | PN- Housestaff ---
See Addendum Subjective Follow-up For: EtOH withdrawal Tele-Events Since Last Visit: Patient off telemetry Subjective: Patient seen resting in the bed eating breakfast. He reports that he is agitated and wants to smoke a cigarette and that nicotine patch is not working. The patient is alert and oriented to person and time, somewhat confused about the place and making contradictory statements. He states that he never came here to detox and for alcohol rehab, he reports that somebody took his house is unsure if we took it from him, but he feels like we are keeping him here and he must go home to get his house back. Otherwise, denies headache, denies chest pain, denies audio/visual/tactile hallucinations, denies tremor/seizure activity. Patient also denies abdominal pain and/or nausea/vomiting, but he also reports that he is always nauseous and vomiting like when he came in and this was not due to withdrawal. Review of Systems Constitutional: Denies: chills, diaphoresis, fever, malaise. Objective Last 24 Hrs of Vital Signs/I&O Vital Signs Date Time Temp Pulse Resp B/P B/P Pulse O2 O2 Flow FiO2 Mean Ox Delivery Rate 05/25 0759 94 128/70 08/03 0640 98.9 87 18 124/66 97 Room Air / 2239 84 116/70 08/02 2239 98.1 84 18 116/70 98 08/02 1443 97.7 81 18 124/88 98 Room Air Intake & Output 05/25 1600 08/03 0800 08/ 0000 Intake Total Output Total 400 600 Balance -400 -600 Output, Urine 400 600 Physical Exam General Appearance: Alert, Cooperative, No Acute Distress Cardiovascular: Regular Rate, Normal S1, Normal S2, No Murmurs Lungs: Clear to Auscultation, Normal Air Movement Abdomen: Normal Bowel Sounds, Soft, No Tenderness Assessment/Plan Assessment: 48 year old male with history of heavy alcohol use and depression, presenting for signs and symptoms of severe alcohol withdrawal, as well as chest pain and EKG changes. Patient's initial CIWA on presentation was 16, AST was 70 and ALT 75. Magnesium of 0.6. Initial EKG showed T wave inversions in II, III and avF, as well as V3, V4 and V5. This morning, magnesium was 1.4, potassium of 3.5. CIWA this morning was 12-16. Patient was severely agitated last night, IV ativan 2mg given x2, patient is slightly confused this morning but awake and alert. His CIWA overnight was documented up to 21, doubtful as the patient did not have seizure activity and was not tachycardic, but on assessment patient has been around 10- 12 this morning. Problems: 1. EtOH withdrawal 2. Chest pain with acute EKG changes 3. Elevated liver enzymes 4. Hypomagnesemia Plan: * Slow-Mag changed to 65mg PO TID * Lorazepam 2 mg p.o. every 4 hours, to taper dosage * CIWA protocol for IV ativan, PO should hopefully be sufficient * Thiamine and Folic acid PO daily * Follow-up hepatitis panel * Follow-up echo * Consider abdominal ultrasound * Replete potassium and magnesium as necessary * flight attendant inflight services consulted for rehab placement * Continue nicotine patch Full code Heparin Sub-q PPX Heart healthy diet BEP tomorrow Problem List: 1. KATHI (obstructive sleep apnea) 2. Depression 3. Alcohol withdrawal Pain Ratin Pain Location: NONE Pain Goal: Pain 4 or less Pain Plan: Per pathway Tomorrow's Labs & Rationales: BEP and magnesium
--- NOTE | 2018-05-25 11:15 | Transfer of Care Summary ---
Hospital Course Course Hospital Course: Mr. Ji is a 48 year old male with a history of EtOH abuse, depression, GERD and KATHI who presented to the ED for alcohol detox. He stated that his last drink was the day prior to admission, and that for years he has been drinking two liters of vodka daily. The evening before admission, around 10pm he began experiencing severe nausea, abdominal pain and vomiting, stating that he had vomited "dozens" of times throughout the night, without blood in his vomit. He additionally complained of a headache and tremors that were similar in onset, as well as occasionally "seeing spots". He denied auitory and tactile disturbances, or seizure activity. The patient additionally complained of chest pain that he attributed to GERD that he said had been happening daily for over a week, and insomnia that has been bothering him since he was a teenager. The patient resides in [place], [place], but came to [place] on the advice of his mother. He has previously withdrawn from alcohol 4-5 times, and has been admitted to [facility] for similar complaints as recently as 6 months ago. The patient has never been intubated, but has had seizures related to alcohol withdrawal at least 3 times, most recently about two years ago. The patient was most recently sober for an extended amount of time in 2000, when he spent 6 months in [facility] in [place] before relapsing after getting . He is a current every day smoker, reporting 1/2 pack per day, but he denies illicit drug use. He was admitted to the telemetry unit after EKG changes were found with T-wave inversion in leads 2, 3 and aVL. CIWA protocol with ativan IV was begun, and the patient was also given PO ativan that was attempted to taper as his symptoms began to improve. The patient also craved nicotine and the patch was not enough to stem his cravings. He felt agitated and expressed a desire to leave, but agreed to stay after psychiatry met with the patient, and they also found him to not have capacity due to confusion associated with his withdrawal and his sedation secondary to ativan. The patient became severely agitated again, and required restraints as he was unsafe to ambulate and again assessed to not have capacity to choose to leave against medical advice. CIWA protocol with Ativan was continued and the patient was removed from restraints as his agitation waned. Pertinent Lab Results: Hepatitis panel negative Patient pancytopenic, WBC 3.6, Hgb 12.8, Hct 37.1, Plt 76 Assessment/Plan: 48 year old male with history of heavy alcohol use and depression, presenting for signs and symptoms of severe alcohol withdrawal, as well as chest pain and EKG changes. Patient's initial CIWA on presentation was 16, AST was 70 and ALT 75. Magnesium of 0.6. Initial EKG showed T wave inversions in II, III and avF, as well as V3, V4 and V5. This morning, magnesium was 1.4, potassium of 3.5. CIWA this morning was 12-16. Patient was severely agitated last night, IV ativan 2mg given x2, patient is slightly confused this morning but awake and alert. His CIWA overnight was documented up to 21, doubtful as the patient did not have seizure activity and was not tachycardic, but on assessment patient has been around 10- 12 this morning. Problems: 1. EtOH withdrawal 2. Chest pain with acute EKG changes 3. Elevated liver enzymes 4. Hypomagnesemia Plan: * Slow-Mag changed to 65mg PO TID * Lorazepam 2 mg p.o. every 4 hours, to taper dosage * CIWA protocol for IV ativan, PO should hopefully be sufficient * Thiamine and Folic acid PO daily * Follow-up hepatitis panel * Follow-up echo * Consider abdominal ultrasound * Replete potassium and magnesium as necessary * financial services education consultant consulted for rehab placement * Continue nicotine patch
[2018-05-25 15:02] VITALS: BP 126/74
--- NOTE | 2018-05-25 15:51 | ECHOCARDIOGRAM REPORT ---
JOI FINE Age: 48 : 1970 Gender: M Exam Date: 05/24/2018 09:45 Exam Location: 1 [address] Ht (in): 67 Wt (lb): 152 BSA: 1.81 BP: 138 / 78 Ordering Physician: Richelle Dale MD Referring Physician: Richelle Dale MD Technologist: rEic Lynn [facility] Room Number: [id number] Indications: Chest pain, unspecified Rhythm: Sinus Technical Quality: Fair, Technically difficult study FINDINGS Left Ventricle Normal size left ventricle. No obvious regional wall motion abnormalities. Normal left ventricular ejection fraction estimated at 60-65%. Right Ventricle Normal right ventricular size and function. Right Atrium Normal right atrial size. Left Atrium Left atrial size at the upper limits of normal. Mitral Valve Mitral valve thickened. Trace mitral regurgitation. Aortic Valve Trileaflet aortic valve. Focal thickening of the aortic valve cusps. No aortic stenosis. No aortic regurgitation. Tricuspid Valve Tricuspid valve not well visualized, grossly normal. Trace tricuspid regurgitation. Pulmonic Valve Pulmonic valve not well visualized, grossly normal. Pericardium Pericardial effusion. Great Vessels Aortic root and proximal ascending aorta not well visualized, grossly normal. CONCLUSIONS 1. Aortic sclerosis is present with no valvular stenosis or insufficiency. 2. Mitral leaflet thickening is present with minimal mitral insufficiency. 3. A very small pericardial effusion is present. 4. The left ventricular chamber size and systolic function appear normal with no resting wall motiion abnormaliteis. 5. Minimal tricuspid insufficiency is present with no evidence of pulmonary hypertensioin. Jason Lemus M.D. (Electronically Signed) Final Date: 25 May 2018 15:49 MEASUREMENTS (Male / Female) Normal Values 2D ECHO LV Diastolic Diameter PLAX 4.4 cm 4.2 - 5.9 / 3.9 - 5.3 cm LV Systolic Diameter PLAX 3.1 cm 2.1 - 4.0 cm LV Fractional Shortening PLAX 29.5 % 25 - 46 % LV Ejection Fraction 2D Teich 56.8 % IVS Diastolic Thickness 1.1 cm LVPW Diastolic Thickness 1.1 cm LV Relative Wall Thickness 0.5 RV Internal Dim ED PLAX 2.8 cm 1.9 - 3.8 cm LVOT Diameter 2.0 cm Aortic Root Diameter 2.4 cm LA Systolic Diameter LX 3.1 cm 3.0 - 4.0 / 2.7 - 3.8 cm LA Volume 33.0 cm 18 - 58 / 22 - 52 cm Ascending Aorta Diameter 2.7 cm DOPPLER AV Peak Velocity 112.0 cm/s AV Peak Gradient 5.0 mmHg AV Mean Velocity 73.5 cm/s AV Mean Gradient 3.0 mmHg AV Velocity Time Integral 22.5 cm LVOT Peak Velocity 94.7 cm/s LVOT Peak Gradient 3.6 mmHg LVOT Mean Velocity 57.9 cm/s LVOT Mean Gradient 2.0 mmHg LVOT Velocity Time Integral 17.8 cm LVOT Stroke Volume 55.9 cm AV Area Cont Eq vti 2.5 cm AV Area Cont Eq pk 2.7 cm MV Peak Velocity 68.9 cm/s MV Peak Gradient 1.9 mmHg MV Mean Velocity 49.4 cm/s MV Mean Gradient 1.0 mmHg Mitral E Point Velocity 56.8 cm/s Mitral A Point Velocity 56.8 cm/s Mitral E to A Ratio 1.0 MV PHT Velocity 73.3 cm/s MV Deceleration [place] 304.0 cm/s MV Pressure Half Time 72.3 ms MV Area PHT 3.0 cm MV Deceleration Time 342.0 ms PV Peak Velocity 106.0 cm/s PV Peak Gradient 4.5 mmHg PV Mean Velocity 71.2 cm/s PV Mean Gradient 2.0 mmHg PV Velocity Time Integral 23.2 cm LV E' Lateral Velocity 9.2 cm/s Mitral E to LV E' Lateral Ratio 6.2 LV E' Septal Velocity 8.1 cm/s Mitral E to LV E' Septal Ratio 7.0
[2018-05-25 20:38] VITALS: BP 112/88
--- NOTE | 2018-05-26 04:58 | PN- Housestaff ---
Su PEÑA,Marisa 05/26/18 0458: Subjective Follow-up For: EtOH withdrawal Complaints: no complaints Tele-Events Since Last Visit: No events Subjective: Patient seen and examined at bedside. No overnight events. Patient says he slept well. He is eager to go home today. He is conscious and oriented 3. Review of Systems Constitutional: Reports: no symptoms. Objective Last 24 Hrs of Vital Signs/I&O Vital Signs Date Time Temp Pulse Resp B/P B/P Pulse O2 O2 Flow FiO2 Mean Ox Delivery Rate 05/25 2039 91 112/88 05/25 2038 97.8 91 18 112/88 100 Room Air 05/25 1502 98.2 87 18 126/74 98 Room Air 05/25 08 20 126/60 05/25 08 97 Room Air 05/25 0759 94 128/70 05/25 0640 98.9 87 18 124/66 97 Room Air Intake & Output 05/26 0805/26 0000 05/25 1600 Intake Total 240 480 Output Total Balance 240 480 Intake, Oral 240 480 Patient 151 lb Weight Weight Bed scale Measurement Method Physical Exam General Appearance: Alert, Oriented X3, Cooperative, No Acute Distress Cardiovascular: Regular Rate, Normal S1, Normal S2, No Murmurs Lungs: Clear to Auscultation Abdomen: Soft, No Tenderness, No Hepatospenomegaly, No Masses Neurological: Normal Speech, Strength at 5/5 X4 Ext, Sensation Intact, Cranial Nerves 3-12 NL Current Medications: Current Medications Sig/Kian Start time Last Medication Dose Route Stop Time Status Admin Acetaminophen 650 MG Q6P PRN 05/22 1800 AC PO Dicyclomine HCl 20 MG Q6P PRN 05/22 1945 AC PO Folic Acid 1 MG DAILY 05/23 0900 AC 05/25 PO 0752 Lorazepam 1.5 MG Q4 05/26 0600 AC PO Lorazepam 1 MG Q2P PRN 05/24 1815 AC 05/25 IV 0025 Lorazepam 2 MG Q4 05/24 1000 AC 05/26 PO 05/26 0559 0129 Magnesium Chloride 64 MG TID 05/25 1400 AC 05/25 PO 203 Magnesium Chloride 64 MG BID 05/23 1054 DC 05/25 PO 0752 Metoprolol Tartrate 12.5 MG BID 05/24 2100 AC 05/25 PO 203 Nicotine 2 MG BID PRN 05/26 0130 AC PO Nicotine 2 MG ONCE ONE 05/25 1845 DC 05/25 PO 05/25 1846 1923 Nicotine 21 MG DAILY 05/23 09 AC 05/25 TOP 0752 Ondansetron HCl 4 MG Q6P PRN 05/22 1945 AC IV Oxycodone HCl 10 MG Q6P PRN 05/22 1800 AC PO Oxycodone/ 1 TAB Q6P PRN 05/22 1800 AC Acetaminophen PO Patient Medication 1 ED ONE ONE 05/25 1515 DC 05/25 Teaching ED 05/25 1516 1828 Thiamine HCl 100 MG DAILY 05/23 900 AC 05/25 PO 0752 Last 24 Hrs of Lab/Robin Results Last 24 Hrs of Labs/Mics: Laboratory Tests 05/25/18 0618: Anion Gap 11, Estimated GFR > 60, BUN/Creatinine Ratio 24.3, Magnesium 1.4 L Assessment/Plan Assessment: 48 year old male with history of heavy alcohol use and depression, presenting for signs and symptoms of severe alcohol withdrawal, as well as chest pain and EKG changes. Problems: 1. EtOH withdrawal 2. Chest pain with acute EKG changes 3. Elevated liver enzymes 4. Hypomagnesemia Plan: * Continue telemetry monitoring. Vitals every shift * Hypomagnesemia-magnesium 65mg PO TID * Lorazepam 2 mg p.o. every 4 hours, to taper slowly. * CIWA protocol for IV ativan * Thiamine and Folic acid PO daily * Consider abdominal ultrasound * Replete potassium and magnesium as necessary * consumer services advisor consulted for rehab placement * Continue nicotine patch Patient does not have capacity. Hence cannot leave AGAINST MEDICAL ADVICE. Diet-heart healthy diet Code-full code Problem List: 1. Alcohol withdrawal Pain Ratin Pain Location: none Pain Goal: Remain pain free Pain Plan: Tylenol Tomorrow's Labs & Rationales: Miguel A West MD,Milady 05/26/18 1307: Attending MD Review Statement Attending Statement Attending MD Statement: examined this patient, discuss w/resident/PA/CHEF DE FROID, agreed w/resident/PA/CHEF DE FROID, reviewed EMR data (avail), discussed with nursing, discussed with case mgmt, reviewed images, amended to note Attending Assessment/Plan: Patient seen and examined, he wants to go home. He was evaluated by psychiatry 2 days ago and the deemed him not having capacity to make his own decisions therefore he could not leave AGAINST MEDICAL ADVICE. His vital signs are stable. His CIWA scores are running low. At this point will continue to taper his Ativan. I reduced his Ativan to 1.5 mg every 6 hours. Continue as needed Ativan. Patient is off telemetry and can be transferred to medicine floor. He has severe hypomagnesemia. Please aggressively replete his magnesium. I have ordered magnesium sulfate IV in addition to his Slow-Mag that he is getting by mouth.
[2018-05-26 06:56] VITALS: BP 140/98
[2018-05-26 16:41] VITALS: BP 140/76
[2018-05-26 20:15] VITALS: BP 112/76
[2018-05-27 07:10] VITALS: BP 114/72
[2018-05-27 07:49] LABS: ABSOLUTE BASOPHIL COUNT 0 /CUMM (0.0-0.2); ABSOLUTE EOSINOPHIL COUNT 0.1 /CUMM (0.0-0.7); ABSOLUTE LYMPH COUNT 1.3 /CUMM (1.2-3.4); ABSOLUTE MONOCYTE COUNT 0.7 /CUMM (0.10-0.60); BASOPHIL % 0.7 % (0.0-2.0); EOSINOPHIL % 2.4 % (0-5); GRANULOCYTE % 58.6 % (42.2-75.2); HEMATOCRIT 38.4 % (42-52); MEAN CORPUSCULAR HGB 33.3 PG (27.0-31.0); MEAN CORPUSCULAR HGB CONC 34.2 G/DL (33.0-37.0); MEAN CORPUSCULAR VOLUME 97.5 FL (80.0-94.0); MEAN PLATELET VOLUME 9.6 FL (7.4-10.4); RBC DISTRIBUTION WIDTH 14.1 % (11.5-14.5); RED BLOOD CELL CT 3.94 /CUMM (4.70-6.10); WHITE BLOOD CELL COUNT 5.1 /CUMM (4.8-10.8)
[2018-05-27 08:46] LABS: PLATELET COUNT 99 /CUMM (130-400)
--- NOTE | 2018-05-27 10:16 | PN- Housestaff ---
Hira PEÑA,Marilyn 05/27/18 1006: Subjective Follow-up For: Follow-up alcohol detox Subjective: Patient is seen and examined at the bedside. He was sleeping. I first discussed with sitter and according to him he took his breakfast and after that he is sleeping. I talked to patient, he told that he wanted to go home. He thinks, we are not doing anything over here. He told that he was given medication for the heart. He can take them at the home. He denies for any hallucinations. On examination he was having tremors. In between the conversation he become a little bit agitated and anxious wanted to get out of the bed. Review of Systems Constitutional: Reports: no symptoms, malaise. Objective Last 24 Hrs of Vital Signs/I&O Vital Signs Date Time Temp Pulse Resp B/P B/P Pulse O2 O2 Flow FiO2 Mean Ox Delivery Rate 05/27 945 114/72 05/27 0710 98.2 74 18 114/72 97 05/26 2015 98.2 90 18 112/76 98 Room Air 05/26 2012 90 110/76 05/26 1641 97.6 99 16 140/76 100 05/26 1031 78 140/98 Intake & Output 05/27 1600 05/27 0800 05/27 0000 Intake Total Output Total Balance Patient 69.088 kg Weight Physical Exam General Appearance: Alert, Oriented X3, Cooperative, No Acute Distress Cardiovascular: Normal S1, Normal S2 Lungs: Clear to Auscultation, Normal Air Movement Abdomen: Soft, No Tenderness Extremities: No Clubbing, No Cyanosis, No Edema, tremors Current Medications: Current Medications Sig/Kian Start time Last Medication Dose Route Stop Time Status Admin Acetaminophen 650 MG Q6P PRN 05/22 1800 AC PO Dicyclomine HCl 20 MG Q6P PRN 05/22 1945 AC PO Folic Acid 1 MG DAILY 05/23 0900 AC 05/27 PO 0945 Lorazepam 1 MG Q6 05/27 1200 AC PO Lorazepam 1.5 MG Q6 05/26 1800 DC 05/27 PO 0552 Lorazepam 2 MG ONCE ONE 05/26 1645 DC 05/26 PO 05/26 1646 1649 Lorazepam 1.5 MG Q4 05/26 0600 DC 05/26 PO 1251 Lorazepam 1 MG Q2P PRN 05/24 1815 AC 05/26 IV 1252 Magnesium Chloride 64 MG TID 05/25 1400 AC 05/27 PO 0945 Magnesium Sulfate 1 GM Q2H 05/27 1100 AC Dextrose/Water 100 ML IV 05/27 1459 Magnesium Sulfate 1 GM ONCE ONE 05/27 1015 CAN Dextrose/Water 100 ML IV 05/27 1414 Magnesium Sulfate 1 GM ONCE ONE 05/27 1015 CAN Dextrose/Water 100 ML IV 05/27 1414 Magnesium Sulfate 1 GM Q2H 05/26 1315 DC Dextrose/Water 100 ML IV 05/26 1714 Metoprolol Tartrate 12.5 MG BID 05/24 2100 AC 05/27 PO 0945 Nicotine 2 MG BID PRN 05/26 0130 AC 05/26 PO 1650 Nicotine 21 MG DAILY 05/23 0900 AC 05/26 TOP 1031 Ondansetron HCl 4 MG Q6P PRN 05/22 1945 AC IV Oxycodone HCl 10 MG Q6P PRN 05/22 1800 AC PO Oxycodone/ 1 TAB Q6P PRN 05/22 1800 AC Acetaminophen PO Thiamine HCl 100 MG DAILY 05/23 0900 AC 05/27 PO 0945 Last 24 Hrs of Lab/Robin Results Last 24 Hrs of Labs/Mics: Laboratory Tests 05/27/18 0710: Anion Gap 9, Estimated GFR > 60, BUN/Creatinine Ratio 23.8, Magnesium 1.3 L, CBC w Diff NO MAN DIFF REQ, RBC 3.94 L, MCV 97.5 H, MCH 33.3 H, MCHC 34.2, RDW 14.1, MPV 9.6, Gran % 58.6, Lymphocytes % 24.4, Monocytes % 13.9 H, Eosinophils % 2.4, Basophils % 0.7, Absolute Granulocytes 3.0, Absolute Lymphocytes 1.3, Absolute Monocytes 0.7 H, Absolute Eosinophils 0.1, Absolute Basophils 0 Orders CIWA Score (last 24 hrs): 4, 0, 0, 4 Assessment/Plan Assessment: 48-year-old male with history of alcohol use disorder and depression presented with chief complaints of chest pain and alcohol withdrawal symptoms. Vital signs-temperature 98.2, pulse 74, respiratory rate 18, blood pressure 140/ 72, SPO2 97% on room air. Assessment and plan - * Patient is general medicine hold. * Vital signs are stable his CIWA score is low. * We will continue to taper tablet Ativan.We decrease the dose of tablet Ativan to 1 mg every 6. * He still having low magnesium to 1.3. We will give inj magnesium 2 g IV and will continue tablet magnesium 64 mg 3 times daily. * Diet -heart healthy diet * DVT prophylaxis-ALP S Problem List: 1. KATHI (obstructive sleep apnea) 2. Depression 3. Alcohol withdrawal Pain Ratin Pain Location: n/a Pain Goal: Remain pain free Pain Plan: avoid sedatives and hypnotics. Tomorrow's Labs & Rationales: BP, magnesium, phosphorus. DVT/Prophylaxis: mechanical, pharmacological Milady West MD 05/27/18 1233: Attending MD Review Statement Attending Statement Attending MD Statement: examined this patient, discuss w/resident/PA/CD MANUFACTURING SUPERVISOR, agreed w/resident/PA/CD MANUFACTURING SUPERVISOR, reviewed EMR data (avail), discussed with nursing, amended to note Attending Assessment/Plan: Patient seen, discussed with the house staff. Patient remains on Ativan. Agree with further taper. Patient was somewhat drowsy today. Continue to taper Ativan. Continue electrolytes. Patient is now off tele. Continue the rest of the management.
[2018-05-27 14:28] VITALS: BP 124/78
[2018-05-27 22:02] VITALS: BP 128/86
[2018-05-28 06:45] VITALS: BP 118/78
--- NOTE | 2018-05-28 08:06 | PN- Housestaff ---
Christopher Torrez 05/28/18 0805: Subjective Follow-up For: etoh withdawal & detox Tele-Events Since Last Visit: off tele Subjective: pateint seen resting comfortably in the bed. he denies headache, nausea, vomiting, anxiety/agitation, visual/audtio/tactile disturbances. patient reports he is ready to go home today and that his mother is coming to pick him up. He is alert and oriented x3. Review of Systems Constitutional: Denies: chills, diaphoresis, fever, malaise, weakness. Objective Last 24 Hrs of Vital Signs/I&O Vital Signs Date Time Temp Pulse Resp B/P B/P Pulse O2 O2 Flow FiO2 Mean Ox Delivery Rate 05/28 0645 98.9 86 18 118/78 100 Room Air 05/27 2202 98.9 83 16 128/86 98 05/27 1428 97.7 83 18 124/78 99 Room Air 05/27 0945 114/72 Intake & Output 05/28 1600 05/28 0800 05/28 0000 Intake Total 100 100 Output Total Balance 100 100 Intake, Oral 100 100 Patient 70.052 kg Weight Physical Exam General Appearance: Alert, Oriented X3, Cooperative, No Acute Distress Current Medications: Current Medications Sig/Kian Start time Last Medication Dose Route Stop Time Status Admin Acetaminophen 650 MG Q6P PRN 05/22 1800 AC PO Dicyclomine HCl 20 MG Q6P PRN 05/22 1945 AC PO Folic Acid 1 MG DAILY 05/23 0900 AC 05/27 PO 0945 Lorazepam 0.5 MG TID 05/28 0900 AC PO 06/04 0859 Lorazepam 1 MG Q6 05/27 1200 DC 05/28 PO 0508 Lorazepam 1.5 MG Q6 05/26 1800 DC 05/27 PO 0552 Lorazepam 1 MG Q2P PRN 05/24 1815 AC 05/26 IV 1252 Magnesium Chloride 64 MG TID 05/25 1400 AC 05/27 PO 2011 Magnesium Sulfate 1 GM Q2H 05/27 1100 DC 05/27 Dextrose/Water 100 ML IV 05/27 1459 1709 Magnesium Sulfate 1 GM ONCE ONE 05/27 1015 CAN Dextrose/Water 100 ML IV 05/27 1414 Magnesium Sulfate 1 GM ONCE ONE 05/27 1015 CAN Dextrose/Water 100 ML IV 05/27 1414 Metoprolol Tartrate 12.5 MG BID 05/24 2100 AC 05/27 PO 2010 Nicotine 2 MG BID PRN 05/26 0130 AC 05/28 PO 0511 Nicotine 21 MG DAILY 05/23 09 AC 05/26 TOP 1031 Ondansetron HCl 4 MG Q6P PRN 05/22 1945 AC IV Oxycodone HCl 10 MG Q6P PRN 05/22 1800 AC PO Oxycodone/ 1 TAB Q6P PRN 05/22 1800 AC Acetaminophen PO Thiamine HCl 100 MG DAILY 05/23 09 AC 05/27 PO 0945 Last 24 Hrs of Lab/Robin Results Last 24 Hrs of Labs/Mics: Laboratory Tests 05/28/18 0625: Sodium Pending, Potassium Pending, Chloride Pending, Carbon Dioxide Pending, Anion Gap Pending, BUN Pending, Creatinine Pending, BUN/Creatinine Ratio Pending , Phosphorus Pending, Magnesium Pending, CBC w Diff Pending, WBC Pending, RBC Pending, Hgb Pending, Hct Pending, MCV Pending, MCH Pending, MCHC Pending, RDW Pending, Plt Count Pending, MPV Pending Assessment/Plan Assessment: 48-year-old male with history of alcohol use disorder and depression presented with chief complaints of chest pain and alcohol withdrawal symptoms. Assessment and plan - * Vital signs are stable his CIWA score is low. * We will continue to taper tablet Ativan. We decrease the dose of tablet Ativan to 0.5 mg every 6 hours today. * Continue to replete magnesium as needed * Patient instructed to follow-up with cardiology as outpatient * Diet -heart healthy diet * DVT prophylaxis-ALP S Problem List: 1. Alcohol withdrawal 2. Depression 3. KATHI (obstructive sleep apnea) 4. Acute electrocardiogram changes Pain Ratin Pain Location: none Pain Goal: Pain 4 or less Pain Plan: per pathway Tomorrow's Labs & Rationales: none Litzy Wan MD 05/28/18 1101: Attending MD Review Statement Attending Statement Attending MD Statement: examined this patient, discuss w/resident/PA/JUNIOR ESTIMATOR, agreed w/resident/PA/JUNIOR ESTIMATOR, reviewed EMR data (avail), discussed with nursing, discussed with case mgmt, amended to note Attending Assessment/Plan: Patient seen and examined. Resting comfortably and not in acute distress. No issues overnight. CIWA score is improving significantly. He however remains year to leave the hospital. He does not be genuinely interested in sobriety. evaluation by the psychiatry service it appears that his attempt at sobriety is driven by secondary gain. He has been deemed to have capacity to leave the hospital AGAINST MEDICAL ADVICE today. He has been advised to follow-up with an outpatient alcohol rehabilitation program. He has also been provided referral to the cardiology service for follow-up. We have explained to him that he requires a stress test as recommended by the cardiology service to further evaluate any underlying cardiac disease. He does not have a history of hypertension. He is not tachycardic. He has been advised to follow-up with the cardiology service as an outpatient.
[2018-05-28 08:09] LABS: ABSOLUTE BASOPHIL COUNT 0 /CUMM (0.0-0.2); ABSOLUTE EOSINOPHIL COUNT 0.1 /CUMM (0.0-0.7); ABSOLUTE GRANULOCYTE CT 2.4 /CUMM (1.4-6.5); ABSOLUTE LYMPH COUNT 1.6 /CUMM (1.2-3.4); ABSOLUTE MONOCYTE COUNT 0.6 /CUMM (0.10-0.60); BASOPHIL % 0.7 % (0.0-2.0); EOSINOPHIL % 1.2 % (0-5); GRANULOCYTE % 51.5 % (42.2-75.2); HEMATOCRIT 41.5 % (42-52); MEAN CORPUSCULAR HGB 33.2 PG (27.0-31.0); MEAN CORPUSCULAR HGB CONC 33.8 G/DL (33.0-37.0); MEAN CORPUSCULAR VOLUME 98.1 FL (80.0-94.0); MEAN PLATELET VOLUME 9.6 FL (7.4-10.4); PLATELET COUNT 130 /CUMM (130-400); RBC DISTRIBUTION WIDTH 13.9 % (11.5-14.5); RED BLOOD CELL CT 4.24 /CUMM (4.70-6.10); WHITE BLOOD CELL COUNT 4.7 /CUMM (4.8-10.8)
[2018-05-28 08:49] VITALS: BP 118/72
--- NOTE | 2018-05-28 10:55 | PN- Psychiatry ---
Assessment/Plan Impression: The patient is requesting to leave AGAINST MEDICAL ADVICE. He states that he intends to go to [employer] "in a few weeks". As previously his motivation for sobriety is questionable and seems may need to be driven by his financial dependence on his mother and her desire for his sobriety. On assessment today the patient has capacity to make his decisions. Suggestion: The patient received 4.5 mg of lorazepam yesterday. He has received 1 mg already this morning. Vital signs are normal. The patient agrees to continue his taper as an outpatient. Suggest 0.5 mg of lorazepam 4 times daily for a total dose of 2.5 mg today, 1 mg tomorrow and stop. -The patient states he will follow-up with his outpatient providers at [facility] and also intends to get a private psychiatrist. -He reports that he and his mother will stay in contact with [employer]. Subjective Subjective: "I need to get my affairs in order, I have been here 8 days and I want to leave ". Objective Last 24 Hrs of Vital Signs/I&O Vital Signs Date Time Temp Pulse Resp B/P B/P Pulse O2 O2 Flow FiO2 Mean Ox Delivery Rate 05/28 0849 85 118/72 08/06 0645 98.9 86 18 118/78 100 Room Air 08/ 2202 98.9 83 16 128/86 98 08/05 1428 97.7 83 18 124/78 99 Room Air Intake & Output 05/28 1600 08/06 0800 08 0000 Intake Total 100 100 Output Total Balance 100 100 Intake, Oral 100 100 Patient 70.052 kg Weight Physical Exam: The patient is alert and oriented 3. Eye contact is good, gait study per report. Speech normal in rate, rhythm, volume and tone. Mood and affect are frustrated. "I know I am being stubborn". She is not suicidal or homicidal. He is future oriented. Thought process is normal in tempo, stream and form with no delusions or obsessions. There is no perceptual abnormality. Impulse control is fair. The patient is capable of understanding and processing information given to him. Insight into his substance use is poor but he has capacity to make decisions. His judgment is not impaired.
--- NOTE | 2018-05-28 11:08 | Event Note ---
Event Note Event Note: S- Called by nursing and notified that the patient was requesting to leave AGAINST MEDICAL ADVICE. Went to see the patient and discussed the reasoning behind his request to leave AGAINST MEDICAL ADVICE, which he said is that he just wants to leave and that he has been in the hospital too long. B- 48 year old male here for EtOH withdrawal and detox. Has been on CIWA protocol but has not received IV ativan since 05/26/18, has been receiving PO ativan, 4mg over the past 24hrs (1mg Q6 hours). The patient has plans to pursue outpatient alcohol treatment, but wishes to go home to [place], [place] first. Psychiatry saw him on 05/24/18 for a similar situation and the patient agreed to stay at that time. A- 48 year old male with history of EtOH abuse, currently detoxing from EtOH, requesting to leave AGAINST MEDICAL ADVICE. R- Psychiatry reconsulted, found that the patient has capacity to make decisions. Risks of leaving AGAINST MEDICAL ADVICE were explained to the patient , including risk of seizure and , which the patient understood and repeated back. At this point the patient still requested to leave AGAINST MEDICAL ADVICE and the appropriate paperwork was filled out.
--- NOTE | 2018-05-28 11:13 | Patient Discharge Instructions ---
Discharge Instructions General Discharge Information You were seen/treated for: Alcohol Withdrawl EKG changes Watch for these problems: [facility] [place] e[place] any chets pain, palpitations, or shortness of breath. Special Instructions: Please follow up with your PCP and clinical education specialist within a week after discharge. Diet Continue normal diet: Yes Recommended Diet: Heart Healthy Activity Full Activity/No Limits: Yes Activity Self Limited: Yes Acute Coronary Syndrome Inclusion Criteria At DC or during hospital stay patient has or had the following: ACS DIAGNOSIS No Discharge Core Measures Meds if any: Prescribed or Continued at Discharge Meds if any: NOT Prescribed or Continued at Discharge Congestive Heart Failure Inclusion Criteria At DC or during hospital stay patient has or had the following: CHF DIAGNOSIS No Discharge Core Measures Meds if any: Prescribed or Continued at Discharge Meds if any: NOT Prescribed or Continued at Discharge Cerebrovascular accident Inclusion Criteria At DC or during hospital stay patient has or had the following: CVA/TIA Diagnosis No Discharge Core Measures Meds if any: Prescribed or Continued at Discharge Meds if any: NOT Prescribed or Continued at Discharge Venous thromboembolism Inclusion Criteria VTE Diagnosis No VTE Type NONE VTE Confirmed by (Test) NONE Discharge Core Measures - Per Current guidelines, there needs to be overlap - treatment for the first 5 days of Warfarin therapy. - If discharged on Warfarin prior to 5 days of - overlap therapy, the patient will need to be - assessed for post discharge needs including - *Post discharge parental anticoagulation - *Warfarin and/or parental anticoagulation education - *Follow up date to check INR post discharge At least 5 days overlap therapy as Inpatient No Meds if any: Prescribed or Continued at Discharge Note: Overlap Therapy is Warfarin and Anticoagulant Meds if any: NOT Prescribed or Continued at Discharge
[2018-05-28] MEDS ORDERED: FOLIC ACID1 M1 PO ×2 (11:15→12:16)
[2018-05-28] MEDS ORDERED: VITAMIN B-1100 MG PO ×2 (11:15→12:17)
[2018-05-28] MEDS ORDERED: MAGNESIUM OXID400 M1 PO ×2 (11:15→12:16)
--- NOTE | 2018-05-28 11:32 | Discharge Summary ---
Visit Information Visit Dates Admission Date: 05/22/18 Discharge Date: 05/28/18 Hospital Course Course Attending Physician: Litzy Wan MD Primary Care Physician: Unknown Hospital Course: Mr. Ji is a 48 year old male with a history of EtOH abuse, depression, GERD and KATHI who presented to the ED for alcohol detox. He stated that his last drink was the day prior to admission, and that for years he has been drinking two liters of vodka daily. The evening before admission, around 10pm he began experiencing severe nausea, abdominal pain and vomiting, stating that he had vomited "dozens" of times throughout the night, without blood in his vomit. He additionally complained of a headache and tremors that were similar in onset, as well as occasionally "seeing spots". He denied auitory and tactile disturbances, or seizure activity. The patient additionally complained of chest pain that he attributed to GERD that he said had been happening daily for over a week, and insomnia that has been bothering him since he was a teenager. The patient resides in [place], [place], but came to [place] on the advice of his mother. He has previously withdrawn from alcohol 4-5 times, and has been admitted to [facility] for similar complaints as recently as 6 months ago. The patient has never been intubated, but has had seizures related to alcohol withdrawal at least 3 times, most recently about two years ago. The patient was most recently sober for an extended amount of time in 2000, when he spent 6 months in [facility] in [place] before relapsing after getting . He is a current every day smoker, reporting 1/2 pack per day, but he denied illicit drug use. He was admitted to the telemetry unit after EKG changes were found with T-wave inversion in leads 2, 3 and aVL. CIWA protocol with ativan IV was begun, and the patient was also given PO ativan that was attempted to taper as his symptoms began to improve. The patient also craved nicotine and the patch was not enough to stem his cravings. He felt agitated and expressed a desire to leave, but agreed to stay after psychiatry met with the patient, and they also found him to not have capacity due to confusion associated with his withdrawal and his sedation secondary to ativan. The patient became severely agitated again, and required restraints as he was unsafe to ambulate and again assessed to not have capacity to choose to leave against medical advice. CIWA protocol with Ativan was continued and the patient was removed from restraints as his agitation waned. The patient's mental status improved, but he repeatedly grew agitated as he craved cigarettes and withdrew from alcohol. He expressed a desire to leave against medical advice more than once, but upon discussion he decided to remain and complete his course of care until the final time when he ultimately decided that he would in fact leave against medical advice. He was advised of the danger of abruptly stopping his benzodiazepine dose, and of the risk of seizure and , which he repeated and understood. Allergies: Coded Allergies: No Known Allergies (05/22/18) Pertinent Lab Results: Hepatitis panel negative Patient pancytopenic, WBC 3.6, Hgb 12.8, Hct 37.1, Plt 76 Disposition Summary Disposition Principal Diagnosis: EtOH withdrawal Additional Diagnosis: EtOH abuse Discharge Disposition: left against medical adv Discharge Instructions General Discharge Information Code Status: Full Code Patient's Diet: Heart healthy diet Patient's Activity: As tolerated Follow-Up Instructions/Appts: Patient instructed to follow-up with his adjunct mathematics instructor and primary care physician about this recent hospitalization. He was on metoprolol 12.5 mg PO during his hospital stay for the EKG changes present on admission. Medications at Discharge Discharge Medications: Start taking the following new medications: Magnesium Oxide (Magnesium Oxide) 400 MG TABLET 1 Tablet ORAL TWICE DAILY Qty = 14 No Refills Instructions: . Comments: Last Taken: 05/28/18 Time: 11:10 Folic Acid (Folic Acid) 1 MG TABLET 1 Tablet ORAL DAILY Qty = 30 No Refills Instructions: . Comments: Last Taken: 05/28/18 Time: 08:49 Thiamine HCl (Vitamin B-1) 100 MG TABLET 1 Tablet ORAL DAILY Qty = 30 No Refills Instructions: . Comments: Last Taken: 05/28/18 Time: 08:49 Copies To: Jhonny Lemus MD
== END 2018-05-28 12:43 | disposition left against medical advice (07) | DRG 894 ==
LOC: ERH 11:23 → ERHI 16:51 → 1NO 16:51 → ENRESERV 17:58 → ENTRNSPT 19:01 → EDTRNSPT 19:16 → EDTRNSPTSTS 19:16 → 1NO 19:23 → CMPTRNSPT 19:33 → 1NO 05-23 07:36 → ENPENDDIS 05-28 11:37 → 1NO 05-28 12:43
PROVIDERS: Internal Medicine; Internal Medicine Adolescent Medicine; Physician Assistant Medical; Student in an Organized Health Care Education/Training Program
DX: F10.239 Alcohol dependence with withdrawal, unspecified (principal); E87.2 Acidosis; E87.1 Hypo-osmolality and hyponatremia; D61.818 Other pancytopenia; D69.6 Thrombocytopenia, unspecified; K21.9 Gastro-esophageal reflux disease without esophagitis; R07.9 Chest pain, unspecified; E83.42 Hypomagnesemia; Y90.0 Blood alcohol level of less than 20 mg/100 ml; F17.210 Nicotine dependence, cigarettes, uncomplicated; R94.31 Abnormal electrocardiogram [ECG] [EKG]; G47.33 Obstructive sleep apnea (adult) (pediatric); F31.9 Bipolar disorder, unspecified; G47.00 Insomnia, unspecified
CPT/HCPCS: 1NP; 36415; 36592; 80307; 82436; 93005; 93010; 93306; 96374; 96375; 99291; G0480; J1644; J2405; J3490